=== PATIENT | male | born 1975 | race Caucasian/White ===

== ENCOUNTER 2019-09-10 18:11 | Inpatient (IN) | payer MEDICAID, SELFPAY ==
[~2019-09-10] VITALS: Ht 165.1 cm; Wt 94.3 kg
[2019-09-10 18:30] VITALS: BP 169/83
--- NOTE | 2019-09-10 18:35 | NUR ---
ngoc cabrera at bedside.
--- NOTE | 2019-09-10 18:44 | NUR ---
DR DOWNEY AT BEDSIDE EVALUATING PT.
--- NOTE | 2019-09-10 18:44 | NUR ---
HX OF ANXIETY C/O COUGH X DAYS, SOB, CHEST PAIN X TODAY . TEMP 103.7, O2 SAT 74 . PT AWAKE , ALERT, FIBRILE , SCE , COARSE BLF , FLAT SOFT NABS NONTENDERS ABDOMEN. MED HX: ANXIETY
[2019-09-10] MEDS ORDERED: ACETAMINOPHEN EXTRA STRENGTH 500 MG TAB ONE (18:58)
[2019-09-10] MEDS ORDERED: IBUPROFEN 800 MG TAB ONE (18:58)
[2019-09-10] MEDS ORDERED: IBUPROFEN 800 MG TAB PO ONE (19:00)
[2019-09-10] MEDS ORDERED: ACETAMINOPHEN EXTRA STRENGTH 500 MG TAB PO ONE (19:00)
--- NOTE | 2019-09-10 19:09 | NUR ---
ABG obtained by respiratory therapist.
[2019-09-10] MEDS ORDERED: AZITHROMYCIN 500 MG in DEXTROSE 5% 250 ML IV ONE (19:10)
--- NOTE | 2019-09-10 19:10 | NUR ---
IV 18GA RT/AC DONE BY CHELSI FERRARI, IV 18GA LT/AC DONE BY CHELSI MARTÍNEZ.COVID-19 SWAB LT NOSTRIL DONE-SENT TO LAB. BLOOD SENT TO LAB. RT AT BEDSIDE FOR ABG. Pt report given BY AM CHELSI FERRARI to PM CHELSI FISHER Transfer of care at this time.
--- NOTE | 2019-09-10 19:14 | NUR ---
gave report to xavi grossman. pt awake , alert, fibrile,stable b/p , tachycardic.side rails up x1 lock and lock.
[2019-09-10] MEDS ORDERED: AZITHROMYCIN 500 MG INJ VIAL IV ONE ×3 (19:17→22:39)
[2019-09-10 19:22] LABS: BASOPHILS % (AUTO) 0.4 % (0.0-2.0); HEMATOCRIT 45.2 % (36-52); HEMOGLOBIN 15.6 g/dL (12.0-18.0); LYMPHOCYTES # (AUTO) 0.5 K/uL (2.0-11.5); LYMPHOCYTES % (AUTO) 5.2 % (20.5-51.1); MEAN CORPUSCULAR HEMOGLOBIN 29 pg (27-31); MEAN CORPUSCULAR HGB CONC 34 g/dL (33-37); MEAN CORPUSCULAR VOLUME 84.7 fL (80-94); MONOCYTES # (AUTO) 0.5 K/uL (0.8-1.0); MONOCYTES % (AUTO) 5.8 % (1.7-9.3); NEUTROPHILS % (AUTO) 88.6 % (42.2-75.2); PLATELET COUNT (AUTO) 174 K/uL (140-450); RED BLOOD CELL COUNT(AUTO) 5.34 MIL/uL (4.20-6.10); RED CELL DISTRIBUTION WIDTH 13.6 % (11.6-13.7)
[2019-09-10 19:36] LABS: ALBUMIN 2.8 g/dL (3.4-5.0); ANION GAP 15.3 (8-16); CARBON DIOXIDE 27.2 mmol/L (21-32); CREATININE 1.4 mg/dL (0.6-1.3); POTASSIUM 3.5 mmol/L (3.5-5.1)
[2019-09-10 19:37] LABS: PROTHROMBIN TIME 10.5 secs (10.8-13.4)
[2019-09-10] MEDS ORDERED: ZINC SULF 220 MG CAP PO ONE (19:45)
[2019-09-10] MEDS ORDERED: HYDROXYCHLOROQUINE 200 MG TAB PO ONE (19:45)
[2019-09-10] MEDS ORDERED: NACL 0.9% 1,000 ML IV SCH (20:14)
[2019-09-10] MEDS ORDERED: ONDANSETRON 4 MG/2 ML VIAL IM/IVP PRN (20:15)
[2019-09-10] MEDS ORDERED: MORPHINE SULFATE 2 MG/ML SYR IVP PRN (20:15)
[2019-09-10] MEDS ORDERED: DOCUSATE SODIUM 100 MG GELCAP PO PRN (20:15)
[2019-09-10] MEDS ORDERED: HYDROcodone/APAP 5/325 MG 1 TAB TAB PO PRN (20:15)
--- NOTE | 2019-09-10 20:24 | NUR ---
PT RESPIRATORY RATE AT 38/MIN, INCREASED O2 TO 15L VIA NON-REBREATHER. DR DOWNEY NOTIFIED, PER DR DOWENY PT IS HIGH RISK FOR DESATING, SPOKE TO CHARGE NURSE ANDREW ABOUT SWITCHING PT TO ICU BED.
[2019-09-10 20:50] LABS: APPEARANCE,URINE CLEAR (CLEAR); BILIRUBIN,URINE 1+ (NEGATIVE); BLOOD, URINE 1+ (NEGATIVE); COLOR,URINE ORANGE (YELLOW); LEUKOCYTE ESTERASE ,URINE NEGATIVE (NEGATIVE); NITRITE, URINE NEGATIVE (NEGATIVE); UGLUCOSE NEGATIVE (NEGATIVE)
[2019-09-10 20:53] LABS: MAGNESIUM 1.4 mg/dL (1.8-2.4); PHOSPHORUS 1.3 mg/dL (2.5-4.9); THYROID STIMULATING HORMONE 0.42 uIU/mL (0.34-3.74)
[2019-09-10 20:58] LABS: BARBITURATE, URINE NEGATIVE ng/ml (NEG <=200); BENZODIAZEPINE, URINE NEGATIVE ng/mL (NEG <=200); CANNABINOID, URINE NEGATIVE ng/mL (NEG <=50); COCAINE, URINE NEGATIVE ng/mL (NEG <=300); OPIATE, URINE NEGATIVE ng/mL (NEG <=2000); PHENCYCLIDINE SCREEN,URINE NEGATIVE ng/mL (NEG <=25)
[2019-09-10 21:11] LABS: WBC,URINE 0-5 /HPF (0-5)
[2019-09-10 21:12] LABS: COARSE GRANULAR CASTS,URINE 0-10 /LPF (None Seen)
--- NOTE | 2019-09-10 21:15 | NUR ---
RECEIVED PT FROM ER. REPORT GIVEN BY EMMA GAGNON AT BEDSIDE TO ENSURE CONTINUITY OF CARE. PT IS SURINAMESE SPEAKING ONLY. TEMP 98.6. PT IS ABLE TO WALK. A&OX4. EYES PERRL 3MM. PT IS ON O2 VIA NRB AT 15 LPM DUE TO LOW O2 SATS AND TACHYPNEA AT 30+ RESPIRATIONS PER MINUTE. SATURATION IS ABOVE 95%. LUNG SOUNDS ARE CLEAR W/ DIMINISHED BASES. S1S2 HEARD. +2 RADIAL PULSES FELT. CAP REFILL <3 SECONDS. SR ON MONITOR. PT HAS NONPRODUCTIVE COUGH W/ ASSOCIATED CHEST PAIN. WHEN ASKED PT HAD STATED FOR APPROXIMATELY 4 DAYS. CALL LIGHT WITHIN REACH. BED IS LOCKED IN LOW POSITION. HOB 30 DEGREES. SAFETY MEASURES IN PLACE. WILL CONTINUE TO MONITOR.
--- NOTE | 2019-09-10 21:18 | NUR ---
Patient will be admitted to care of [facility]. Admited to ICU 2. Belongings list completed. Report to JAVIER GAGNON.
[2019-09-10] MEDS ORDERED: AZITHROMYCIN 500 MG in DEXTROSE 5% 250 ML IV SCH (22:05)
[2019-09-10] MEDS ORDERED: HYDROXYCHLOROQUINE 200 MG TAB ONE (22:30)
[2019-09-10] MEDS ORDERED: MAG SULF 2000 MG/WATER PREMIX 100 ML IV SCH (22:35)
[2019-09-10] MEDS ORDERED: SODIUM PHOS / POTASSIUM PHOS 1 PKT PDR PO SCH (22:35)
[2019-09-10] MEDS ORDERED: cefTRIAXone 1,000 MG VIAL ONE (22:39)
[2019-09-10] MEDS: DEXT 5% /NACL 0.9% 1,000 ML IV SCH (23:15)
--- NOTE | 2019-09-10 23:50 | NUR ---
UTILIZED INTERPRETIVE SERVICE [facility] #[id number] FOR ADMISSION ASSESSMENT
[2019-09-11] VITALS: BP 125/83
[2019-09-11 04:00] VITALS: BP 141/62
[2019-09-11 06:12] LABS: ANION GAP 13.9 (8-16); CARBON DIOXIDE 26.8 mmol/L (21-32); CREATININE 1.1 mg/dL (0.6-1.3); POTASSIUM 3.7 mmol/L (3.5-5.1)
[2019-09-11 06:17] LABS: CHOL/HDL RATIO 3.9 (1-4.5)
[2019-09-11 06:42] LABS: BASOPHILS # (AUTO) 0.1 K/uL (0.00-0.22); BASOPHILS % (AUTO) 1.1 % (0.0-2.0); EOSINOPHILS # (AUTO) 0.1 K/uL (0-0.4); EOSINOPHILS % (AUTO) 0.6 % (0.0-4.0); HEMOGLOBIN 14.8 g/dL (12.0-18.0); LYMPHOCYTES # (AUTO) 1.1 K/uL (2.0-11.5); LYMPHOCYTES % (AUTO) 12.4 % (20.5-51.1); MEAN CORPUSCULAR HEMOGLOBIN 29 pg (27-31); MEAN CORPUSCULAR HGB CONC 35 g/dL (33-37); MEAN CORPUSCULAR VOLUME 84.5 fL (80-94); MONOCYTES # (AUTO) 0.6 K/uL (0.8-1.0); MONOCYTES % (AUTO) 6.3 % (1.7-9.3); NEUTROPHILS # (AUTO) 7.1 K/uL (1.8-7.7); NEUTROPHILS % (AUTO) 79.6 % (42.2-75.2); PLATELET COUNT (AUTO) 260 K/uL (140-450); RED BLOOD CELL COUNT(AUTO) 5.08 MIL/uL (4.20-6.10); RED CELL DISTRIBUTION WIDTH 13.9 % (11.6-13.7)
--- NOTE | 2019-09-11 07:25 | NUR ---
ENDORSED PT TO DAY SHIFT NURSE TO ENSURE CONTINUITY OF CARE.
--- NOTE | 2019-09-11 07:27 | NUR ---
SHIFT REPORT RECEIVED FROM MILL TENDER NURSE. PT IS AWAKE AND RESPONSIVE. PT IS LYING IN BED AND WATCHING TELEVISION. BED IN LOW POSITION. IV IN PLACE. PT ON NON REBREATHER AT 15L/MIN. CURRENT O2 SATS AT 98%. RESPIRATION NOTED AT 28 BREATHS PER MINUTE. WILL CONTINUE TO MONITOR.
[2019-09-11 08:00] VITALS: BP 147/65
--- NOTE | 2019-09-11 08:30 | NUR ---
PT REMOVED NON REBREATHER MASK TO COUGH. O2 SATS NOTED AT 70. RT CHECKED PATIENT. PT WAS GIVEN NASAL CANULA. O2 SATS DID NOT GO ABOVE 94%. RT PUT PT BACK ON NON REBREATHER MASK. O2 SATS AT 93%. PT IS RESPONSIVE TO VERBAL STIMULI. WILL CONTINUE TO MONITOR. CALL LIGHT IN REACH.
--- NOTE | 2019-09-11 08:35 | NUR ---
PATIENT HAS BEEN SCREENED AND CATEGORIZED HIGH NUTRITION RISK. PATIENT WILL BE SEEN WITHIN 1-2 DAYS OF ADMISSION. 09/11/19-09/12/[address]
[2019-09-11] MEDS ORDERED: HYDROXYCHLOROQUINE 200 MG TAB PO SCH ×2 (09:00)
--- NOTE | 2019-09-11 09:01 | NUR ---
RECEIVED PT ON 15L NON-REBREATHER MASK. PT'S VITAL SIGNS ARE STABLE WITH AN O2 SATURATION BETWEEN 90-93%. WILL CONTINUE TO MONITOR AND KEEP PT ON NRB MASK UNTIL 02 DEMANDS DECREASE.
[2019-09-11] MEDS: ENOXAPARIN 40 MG/0.4 ML SYR SUBQ SCH (09:34)
[2019-09-11] MEDS: DEXT 5% /NACL 0.9% 1,000 ML IV SCH (09:46)
--- NOTE | 2019-09-11 10:00 | NUR ---
REQUESTED PATIENT TO REPOSITION FREQUENTLY TO HIS SIDES. PT IS ON NON BREATHER AT 15L. O2 SATS AT 94%. MORNING MEDICATIONS GIVEN. OCCASIONAL COUGH NOTED. D5NS INFUSING AT 80. NO COMPLAINS OF PAIN REPORTED. RESPIRATIONS NOTED AT 32 BREATHS PER MIN. WILL CONTINUE TO MONITOR.
--- NOTE | 2019-09-11 10:08 | NUR ---
DISCHARGE PLANNING: THIS IS A 44 Y/O MALE PATIENT FROM HOME, WHO CAME IN DUE TO FEVER AND SOB X3 DAYS. NO PERTINENT PAST MEDICAL AND SURGICAL HISTORY. INITIAL DIAGNOSIS OF R/O COVID. CURRENT LABS INCLUDE WBC 9.0, H/H 14.8/43.0, H/H 140/3.7, BUN/CREA 13/1.1, LACTIC ACID 1.7 AND C REACTIVE PROTEIN 18.8. COVID-19 PENDING. NEGATIVE FOR A AND B. MRSA NARES, URINE AND BLOOD C/S PENDING. ON AZITHROMYCIN AND CEFTRIAXONE. PULMO CONSULT IN PLACE. CXR SHOWED LOW LUNG VOLUMES WITH DIFFUSE BILATERAL PATCHY INFILTRATES, COVID INFECTION IS POSSIBLE. DC PLAN PENDING ON PATIENT'S RESPONSE TO TREATMENT. Addendum: 09/12/19 at 1015 by Ana Maria Amezcua STILL IN ICU, ON NON REBREATHER MASK AT 15 LPM. COVID 19 STILL PENDING. NO ISOLATED MRSA. URINE CS PENDING. BLOOD C/S NO GROWTH AFTER 24 HOURS. SEEN BY ID, WITH RECOMMENDATIONS TO CONTINUE EMPIRIC COVERAGE WITH COMBINATION OF CEFTRIAXONE, AZITHROMYCIN AND PLAQUENIL; CONTACT AND DROPLET PRECAUTIONS PENDING FURTHER EVALUATION. SEEN BY PULMO - WITH RECOMMENDATIONS TO TITRATE FIO2 SATURATION GREATER THAN 90% AND CONTINUE ICU LEVEL MONITORING. DC PLAN PENDING ON PATIENT'S RESPONSE TO TREATMENT. Addendum: 09/14/19 at 0856 by Ana Maria Amezcua CM STILL IN ICU. ON NON REBREATHER MASK AT 15LPM, O2 SAT 99%. CURRENT LABS INCLUDE WBC 8.1, H/H 13.6/39.9, NA/K 142/3.3, BUN/CREA 11/1.1, C REACTIVE PROTEIN 17.7 AND ALB 2.2. NO ISOLATED MRSA. URINE C/S NEGATIVE. BLOOD C/S NO GROWTH AFTER 48 HOURS. CXR 09/13/2019 SHOWED INTERVAL DEVELOPMENT OF PERIPHERAL CONSOLIDATION OF THE LEFT MID LUNG SUGGEST CORRELATION FOR COVID 19. (+) COVID. ON AZITHROMYCIN AND PLQUENIL. SEEN BY ID-CONTINUE PLAQUENIL AND AZITHROMYCIN. SEEN BY PULMO-TITRATE TO NC IF TOLERATES, PROGNOSIS IS GUARDED. DC PLAN PENDING ON PATIENT'S RESPONSE TO TREATMENT. Addendum: 09/17/19 at 0915 by Ana Maria Amezcua CM STILL IN ICU, ON OXYMIZER AT 8 LPM. CURRENT LABS WNL. SEEN BY ID - WITH RECOMMENDATIONS TO MONITOR OFF ANTIBIOTICS. SEEN BY PULMO - WITH RECOMMENDATIONS TO TITRATE FIO2 TO MAINTAIN O2 SAT GREATER THAN 90%. CURRENT CXR SHOWED MILD PERIHILAR VERSUS INFILTRATE. ON BREATHING TREATMENT WITH ALBUTEROL. DC PLAN PENDING ON PATIENT'S RESPONSE TO TREATMENT. Addendum: 09/18/19 at 0921 by Ana Maria Amezcua CM STILL IN ICU, TELE STATUS. ON 02 AT 8 LPM/OXYMIZER SAT 95%. CURRENT LABS WNL. ID AND PULMO CONSULTS IN PLACE. DC PLAN PENDING ON PATIENT RESPONSE TO TREATMENT. Addendum: 09/19/19 at 1009 by Ana Maria Amezcua STILL IN ICU, TELE STATUS. CURRENT LABS WNL. PATIENT FINISHED THE COURSE OF ANTIBIOTIC FOR COVID. FOR POSSIBLE TRANSFER TO TELE FLOOR TODAY. Addendum: 09/20/19 at 0900 by Ana Maria Amezcua CM STILL IN ICU, ON TELE STATUS. ON 02 @ 2LPM/NC, SAT 97%. SEEN BY ID-CONTINUE CURRENT MANAGEMENT, PATIENT IS STABLE. SEEN BY KIKA-PROGNOSIS IS GUARDED HIGH RISK FOR DECOMPENSATION MONITOR CLOSELY AND CONTINUE SELF PRONING. DC PLAN PENDING ON PATIENT'S RESPONSE TO TREATMENT. Addendum: 09/22/19 at 1102 by Ana Maria Amezcua CM TRANSFERRED TO [facility] ON 09/21/2019 AT 0300. ON ROOM AIR, O2 SAT 93%. CURRENT LABS WNL. ON ZINC SULFATE AND LOVENOX. COMPLETED COVID ANTIBIOTIC COURSE ON 09/15/2019. SEEN BY ID-PATIENT IS CURRENTLY CLINICALLY STABLE, TO CONTINUE TO MONITOR FOR ANY EVIDENCE OF RESP DISTRESS AND NOSOCOMIAL INFECTION. SEEN BY KIKA - OFF O2 AND TO CONTINUE SELF PRONING. DC PLAN PENDING ON PATIENT RESPONSE TO TREATMENT. Addendum: 09/24/19 at 1121 by Ana Maria Amezcua CM ON ROOM AIR, O2 SAT 95%. CURRENT LABS WNL. SEEN BY PT - NO PT INTERVENTIONS DUE TO HIGH LEVEL OF FUNCTION. FOR POSSIBLE DC TOMORROW. CM WILL FOLLOW UP.
[2019-09-11] MEDS ORDERED: hydrALAZINE 20 MG/ML VIAL IVP PRN (11:30)
--- NOTE | 2019-09-11 11:30 | NUR ---
Eyelet Maker Note: Basic Screen: Yes High Risk DC Screen Yaurel: SHAMEKA JACKSON Home Relationship: Pre-Admission Living Arrangements: Lives with Other Prior ADL Independent Current Home Health Name/Tel: N/A Current DME/02 Name/Tel: N/A Current Hospice Name/Tel: N/A Current Dialysis Name/Tel: N/A Healthcare Decision Maker: Patient Advance Directive No Physician Orders for Life Sustaining Treatment Form No Patient/Family Have Educational Needs No Discipline: Case Mgt/Social Svcs Tentative Discharge Plan/Destination: No Needs Identified Will require assistance post discharge: No Referred to [employer] Civil Engineer: No Tentative Discharge Plan Summary: Patient is a 44 year old male admitted for R/O of COVID. Patient has no significant PMHX. Patient was admitted from home where he lives with his and children. SW contacted Shameka Jackson to verify demographics [phone]. Shameka provided permission to speak to her brother Huan Jackson. Per Huan, patient is independent with all ADLs and reports no mental health history or substance abuse history. Tentative discharge plan is for patient to return home. No further needs identified. Signature: PORFIRIO Hyman Date: Sep 11, 2019 Time: 11:28
[2019-09-11 12:00] VITALS: BP 141/80
--- NOTE | 2019-09-11 12:00 | NUR ---
PT IS AWAKE AND RESPONSIVE. PT WAS SEEN COUGHING NOTED WITH SLIGHT RED TINGED COLOR TO SPUTUM. PT WAS GIVEN LUNCH. CALL LIGHT IN REACH. WILL CONTINUE TO MONITOR.
[2019-09-11] MEDS: ASCORBIC ACID 500 MG TAB PO SCH (12:33)
--- NOTE | 2019-09-11 13:40 | NUR ---
09/11/19 RD INITIAL ASSESSMENT COMPLETED PLEASE REFER TO NUTRITION ASSESSMENT UNDER CARE ACTIVITY FOR ESTIMATED NUTRITIONAL NEEDS. 1. CONTINUE REGULAR DIET TOLERATED 2. RECOMMEND ENSURE BID 3. IF PATIENT IS INTUBATED CONSULT WITH FNS FOR NUTRITION SUPPORT RECOMMENDATIONS 4. RD TO FOLLOW-UP 2-3 DAYS, HIGH RISK BALDEV GÓMEZ RD
--- NOTE | 2019-09-11 13:51 | NUR ---
Late entry. Confirmed with RN that 0.9 NS IV ended at 2117
--- NOTE | 2019-09-11 14:17 | NUR ---
PT IS RESTING IN BED AT THIS TIME. AWAKE AND RESPONSIVE. BLOOD PRESSURE AT 158/73, R AT 28. NO COMPLAINS OF PAIN. WILL CONTINUE TO MONITOR.
[2019-09-11 16:00] VITALS: BP 158/80
--- NOTE | 2019-09-11 17:04 | NUR ---
PT IS SITTING IN BED TALKING ON PHONE TO HIS FAMILY. NOTED WITH LOW O2 SATS AT 70% WHEN PT TAKEN OFF HIS MASK. PT REPOSITIONED SELF OFTEN POSSIBLE. PT IS HAVING SIPS OF WATER. WILL CONTINUE TO MONITOR.
--- NOTE | 2019-09-11 17:45 | NUR ---
PT IS SLEEPING BUT RESPONSIVE TO VERBAL STIMULI. PT DOES NOT WANT TO HAVE DINNER. PT IS STILL ON 15L NON REBREATHER O2 SATS AT 98% AND RESPIRATION AT 28. NO COMPLAINS OF PAIN. WILL CONTINUE TO MONITOR.
[2019-09-11] MEDS ORDERED: METOPROLOL 25 MG TAB PO SCH (18:15)
--- NOTE | 2019-09-11 19:13 | NUR ---
SHIFT REPORT GIVEN TO HEALTHCARE INSURANCE SALES AGENT NURSE FOR CONTINUATION OF CARE. PT WILL BE CONTINUED TO BE MONITORED. CALL LIGHT IN REACH.
--- NOTE | 2019-09-11 19:14 | NUR ---
RECEIVED BEDSIDE REPORT FROM AM SHIFT NURSE. PATIENT IS LYING IN BED, SEMI FOWLERS ON RIGHT SIDE. AWAKE AND ALERT. NO DISTRESS NOTED. ON 15L NON BREATHER MASK. BILATERAL IV ACCESS ON RIGHT AND LEFT AC, PATENT, INTACT AND INFUSING WELL. INITIAL ASSESSMENT DONE. SKIN IS INTACT. BED IN LOW, BED LOCKED, SAFETY MEASURES IN PLACE. ON ENHANCED PRECAUTIONS. CALL LIGHT WITHIN PATIENT REACH. WILL CONTINUE TO MONITOR PATIENT.
[2019-09-11 20:00] VITALS: BP 158/80
[2019-09-11] MEDS: AZITHROMYCIN 500 MG in DEXTROSE 5% 250 ML IV SCH (21:26)
[2019-09-11] MEDS: HYDROXYCHLOROQUINE 200 MG TAB PO SCH (21:26)
--- NOTE | 2019-09-11 21:30 | NUR ---
SCHEDULED MEDS ADMINISTERED AT THIS TIME.
--- NOTE | 2019-09-11 21:45 | NUR ---
PATIENT GAVE CONSENT TO GIVE INFORMATION TO MILY LARKIN. PHONE NUMBER LEFT IN CHART.
[2019-09-12] VITALS (7 sets, daily range): BP systolic 122–150; BP diastolic 71–90
[2019-09-12] MEDS: LORazepam 1 MG TAB PO PRN ×2 (00:59→23:22)
--- NOTE | 2019-09-12 00:59 | NUR ---
PRN ATIVAN GIVEN AT THIS TIME PER PATIENT REQUEST FOR ANXIETY. WILL CONTINUE TO MONITOR PATIENT.
--- NOTE | 2019-09-12 02:00 | NUR ---
ROUNDS DONE. PATIENT RESTING WITH EYES CLOSED. VISIBLE CHEST RISE AND FALL NOTED. WILL CONTINUE TO MONITOR PATIENT.
--- NOTE | 2019-09-12 04:00 | NUR ---
VITALS DONE. NO DISTRESS NOTED. WILL CONTINUE TO MONITOR PATIENT.
[2019-09-12 06:15] LABS: ALBUMIN 2.3 g/dL (3.4-5.0); ANION GAP 11.1 (8-16); CARBON DIOXIDE 28.5 mmol/L (21-32); CREATININE 1.1 mg/dL (0.6-1.3); POTASSIUM 3.6 mmol/L (3.5-5.1); TOTAL BILIRUBIN 0.6 mg/dL (0.0-1.0)
[2019-09-12 06:16] LABS: MAGNESIUM 1.8 mg/dL (1.8-2.4); PHOSPHORUS 3.9 mg/dL (2.5-4.9)
[2019-09-12 06:48] LABS: BASOPHILS # (AUTO) 0.1 K/uL (0.00-0.22); EOSINOPHILS % (AUTO) 0.1 % (0.0-4.0); HEMATOCRIT 40.4 % (36-52); HEMOGLOBIN 13.7 g/dL (12.0-18.0); LYMPHOCYTES # (AUTO) 0.7 K/uL (2.0-11.5); LYMPHOCYTES % (AUTO) 10.4 % (20.5-51.1); MEAN CORPUSCULAR HEMOGLOBIN 29 pg (27-31); MEAN CORPUSCULAR HGB CONC 34 g/dL (33-37); MEAN CORPUSCULAR VOLUME 85.1 fL (80-94); MONOCYTES # (AUTO) 0.7 K/uL (0.8-1.0); MONOCYTES % (AUTO) 9.5 % (1.7-9.3); NEUTROPHILS # (AUTO) 5.4 K/uL (1.8-7.7); PLATELET COUNT (AUTO) 241 K/uL (140-450); RED BLOOD CELL COUNT(AUTO) 4.75 MIL/uL (4.20-6.10); RED CELL DISTRIBUTION WIDTH 13.3 % (11.6-13.7); WHITE BLOOD COUNT (AUTO) 6.8 K/uL (4.8-10.8)
--- NOTE | 2019-09-12 07:20 | NUR ---
RECEIVED BEDSIDE REPORT FROM CREAM MAKER NURSE TUNG FOR CONTINUITY OF CARE. PT IS ALSEEP COMFORTABLY ON BED, ON 15 LPM VIA NON-REBREATHER, SPO2 AT 93%. NO SIGNS OF DISTRESS NOTED. IV ON LAC AND RAC 18G, CLEAN AND INTACT. RAC INFUSING D5NS AT 20 ML/HR. SKIN CLEAN AND DRY. PT IS CONTINENT AND ABLE TO USE URANAL BY BEDSIDE. TELE MONITOR, SPO2 MONITOR AND BP CUFF ATTACHED. DROPLET AND ENHANCED PRECAUTION IN PLACE. SAFETY MEASURES IN PLACE.
--- NOTE | 2019-09-12 09:02 | NUR ---
DR RAMIREZ IS TALKING TO PT AT BESIDE.
[2019-09-12] MEDS: ASCORBIC ACID 500 MG TAB PO SCH (09:24)
[2019-09-12] MEDS: ZINC SULF 220 MG CAP PO SCH (09:25)
[2019-09-12] MEDS: HYDROXYCHLOROQUINE 200 MG TAB PO SCH ×2 (09:25→20:28)
[2019-09-12] MEDS: ENOXAPARIN 40 MG/0.4 ML SYR SUBQ SCH (09:26)
--- NOTE | 2019-09-12 09:42 | NUR ---
ADMINISTERED AM SCHEDULED MEDS PER MD ORDER, MEDS EDUCATION PROVIDED AND PT NODDED HIS HEAD, PT TOLERATED PO MEDS WELL. PT AWAKE AND RESTING ON BED AT THIS TIME. NO SIGNS OF DISTRESS NOTED. INSTRUCTED PT TO KEEP NON-REBREATHER ON AT ALL TIME, PT SAID "OK". TELE MONITOR AND SPO2 MONITOR ATTACHED. SAFETY MEASURES IN PLACE.
[2019-09-12] MEDS: DEXT 5% /NACL 0.9% 1,000 ML IV SCH (10:20)
--- NOTE | 2019-09-12 11:00 | NUR ---
PRIOR TO INCENTIVE SPIROMETRY THERAPY PLACED PATIENT ON SUPPLEMENTAL OXYGEN AT 6 LPM VIA NC TOLERATED INCENTIVE SPIROMETRY THERAPY WELL ADVERSE REACTION OF DESCENDING SATURATION TO 90% DURING THERAPY POST THERAPY PLACED PATIENT BACK ON SUPPLEMENTAL OXYGEN AT 15 LPM VIA NON REBREATHER Addendum: 09/12/19 at 1126 by Luciano Valencia RT REVIEWED CXR DATED 09/09 "LOW LUNG VOLUMES WITH PATCHY BILATERAL INFILTRATES"
--- NOTE | 2019-09-12 11:12 | NUR ---
PT IS SITTING UP ON BED AND TALKING ON THE PHONE. RESPIRATION TACHYPNEA AND SPO2 AT 92% VIA NON-REBREATHER MASK. DENIED PAIN, DIZZINESS AND NAUSEA. NO ACUTE DISTRESS NOTED. TELE MONITOR AND SPO2 MONITOR ATTACHED. SAFETY MEASURES IN PLACE.
--- NOTE | 2019-09-12 11:55 | NUR ---
PROVIDED LUNCH TRAY AND CHECKED VITAL SIGNS. PT IS FACE TIMING WITH FAMILY AT THIS TIME.
--- NOTE | 2019-09-12 13:11 | NUR ---
PT IS RESTING ON BED AND LYING ON RIGHT LATERALLY. RESPIRATION TACHYPNEA AND SYMMETRICAL, RR 34, SPO2 AT 98% VIA NON-REBREATHER MASK. NO ACUTE DISTRESS NOTED. TELE MONITOR AND SPO2 MONITOR ATTACHED. SAFETY MEASURES IN PLACE.
--- NOTE | 2019-09-12 15:41 | NUR ---
PT IS RESTING ON BED AND AROUSABLE BY TAPPING ON WINDOW. PT REPLIED, "OK" WITH FINGER GESTURE. SPO2 AT 94% WITH 15 LPM VIA NON-REBREATHER. NO ACUTE DISTRESS NOTED. TELE MONITOR AND SPO2 MONITOR ATTACHED. SAFETY MEASURES IN PLACE.
--- NOTE | 2019-09-12 16:32 | NUR ---
DR KELLEY IS AT BEDSIDE.
[2019-09-12] MEDS: BENZONATATE 100 MG CAPLF PO PRN (17:35)
--- NOTE | 2019-09-12 17:36 | NUR ---
PATIENT COMPLAINED OF COUGHS AND HE FEELS RESTLESS. ADMINISTERED PRN COUGH MED TESSALON PERLES PER MD ORDER, MED EDUCATION PROVIDED AND PT VERBALIZED OK. PT TOLERATED PO MED WELL. PROVIDED DINNER TRAY. PT IS GETTING READY TO HAVE DINNER. DENIED PAIN, SOB, VOMITING. NO ACUTE DISTRESS NOTED. TELE MONITOR AND SPO2 ATTACHED. SAFETY MEASURES IN PLACE.
--- NOTE | 2019-09-12 18:21 | NUR ---
ATTENDED TO PT'S CALL LIGHT, PT STATED THAT "I NEED TO USE THE BATHROOM FOR NUMBER 2." PROVIDED BEDPAN AND WIPE, INSTRUCTED PT TO USE THE BEDPAN AND CLEAN WITH WIPE AFTERWARD. PT NODDED. NO SIGNS OF DISTRESS NOTED. TELE MONITOR AND SPO2 MONITOR ATTACHED. SAFETY MEASURES IN PLACE.
--- NOTE | 2019-09-12 18:45 | NUR ---
RECEIVED A CALL FROM PT'S STEP DAUGHTER CHAYA, UPDATED CHAYA WITH PT'S CURRENT CONDITION. PER CHAYA, THE FAMILY (HERSELF AND THE OF PT) REQUESTED TO NOTIFY THEM FIRST ONCE COVID RESULT IS OUT DUE TO PT WILL GET PANIC AND VERY ANXIOUS. WILL ENDORSE TO ONCOMING SHIFT RN.
--- NOTE | 2019-09-12 19:17 | NUR ---
ENDORSED PT AT BEDSIDE TO CRM SPECIALIST NURSE GARCIA FOR CONTINUITY OF CARE. PT IS IN STABLE CONDITION. TELE MONITOR AND SPO2 MONITOR ATTACHED.
--- NOTE | 2019-09-12 20:00 | NUR ---
RECEIVED PATIENT AWAKE, ALERT AND ORIENTED. PT TACHYPNEIC ON 15LPM NRB MASK. PT DENIES DISCOMFORT OR PAIN. CLEAR LUNG SOUNDS. NO COUGH AT THIS TIME. PT ON TELE AND CONTINUOUS O2 MONITORING. O2 SAT 95% AT THIS TIME. BED LOWERED WITH CALL LIGHT WITHIN REACH. WILL CONTINUE TO MONITOR
[2019-09-12] MEDS: AZITHROMYCIN 500 MG in DEXTROSE 5% 250 ML IV SCH (20:28)
--- NOTE | 2019-09-12 23:22 | NUR ---
PT C/O ANXIETY PRN MEDICATION ADMINISTERED. PT REMAINS ON 15 LPM NRB. O2 SAT 94%
[2019-09-13] MEDS ORDERED: ALBUTEROL HFA MDI 90 MCG/ACTUATION 8 GM INH PRN (03:00)
[2019-09-13 03:05] VITALS: BP 132/71
--- NOTE | 2019-09-13 03:05 | NUR ---
PT O2 SAT SUSTAINING AT 87% ON 15LPM NRB, TACHYPNEIC WITH 55 BREATHS PER MINUTE. PT AWAKE AND ALERT. PT DENIES ANY PAIN. TEMP 100.[address] DEL VALLE
[2019-09-13] MEDS: ACETAMINOPHEN 325 MG TAB PO PRN (03:12)
--- NOTE | 2019-09-13 03:20 | NUR ---
PRN MEDICATION ADMINISTERED FOR FEVER. PATIENT ENCOURAGED TO RELAX AND TAKE DEEP BREATHS. PT PLACED ON HIS LEFT LATERAL SIDE, HOB ELEVATED. O2 SAT 92% ON 15 LPM, NRB. WILL CONTINUE TO MONITOR
[2019-09-13 04:25] VITALS: BP 113/69
--- NOTE | 2019-09-13 05:33 | NUR ---
NO HHN TX NEEDED. HR 94,SPO2 90% ON NRB. PT IS TAHYPNEIC. CHELSI GARCIA IS AWARE. WILL CONT TO MONITOR
[2019-09-13 06:11] LABS: BASOPHILS % (AUTO) 0.2 % (0.0-2.0); EOSINOPHILS % (AUTO) 0.3 % (0.0-4.0); HEMATOCRIT 39.4 % (36-52); HEMOGLOBIN 13.3 g/dL (12.0-18.0); LYMPHOCYTES # (AUTO) 0.5 K/uL (2.0-11.5); LYMPHOCYTES % (AUTO) 6.6 % (20.5-51.1); MEAN CORPUSCULAR HEMOGLOBIN 29 pg (27-31); MEAN CORPUSCULAR HGB CONC 34 g/dL (33-37); MONOCYTES # (AUTO) 0.8 K/uL (0.8-1.0); MONOCYTES % (AUTO) 11.2 % (1.7-9.3); NEUTROPHILS # (AUTO) 5.7 K/uL (1.8-7.7); NEUTROPHILS % (AUTO) 81.7 % (42.2-75.2); PLATELET COUNT (AUTO) 263 K/uL (140-450); RED BLOOD CELL COUNT(AUTO) 4.63 MIL/uL (4.20-6.10); RED CELL DISTRIBUTION WIDTH 13.5 % (11.6-13.7)
[2019-09-13 06:49] LABS: ALBUMIN 2.3 g/dL (3.4-5.0); ANION GAP 12.5 (8-16); CARBON DIOXIDE 29.1 mmol/L (21-32); CREATININE 1.2 mg/dL (0.6-1.3); MAGNESIUM 1.9 mg/dL (1.8-2.4); PHOSPHORUS 3.7 mg/dL (2.5-4.9); POTASSIUM 3.6 mmol/L (3.5-5.1); TOTAL BILIRUBIN 0.5 mg/dL (0.0-1.0)
--- NOTE | 2019-09-13 07:36 | NUR ---
RECEIVED REPORT AT BEDSIDE FOR CONTINUITY OF CARE. PT IS AAOX4, ABLE TO COMMUNICATE WELL AND MAKE NEEDS KNOWN. PT TALKING ON HIS PHONE. PT ON 15L/MIN VIA NON REBREATHER. BOWEL SOUNDS HEARD. SKIN INTACT. LAST BM ON 09/11. DISCUSSED POC WITH PT AND PT VERBALIZED UNDERSTANDING. SAFETY MEASURES IN PLACE. PT INSTRUCTED PER MD ORDERS TO CHANGE POSITIONS TO PRONE FOR MAX OXYGENATION. CALL LIGHT WITHIN REACH, BED IN LOW POSITION. WILL ROUND FREQUENTLY THROUGHOUT THE SHIFT.
[2019-09-13 08:00] VITALS: BP 118/63
--- NOTE | 2019-09-13 09:10 | NUR ---
PATIENT ROUND WITH DR. FORREST RAMIREZ TITRATE OXYGEN DEVICE TO NASAL CANNULA IF TOLERATED
[2019-09-13] MEDS: HYDROXYCHLOROQUINE 200 MG TAB PO SCH ×2 (09:41→20:14)
[2019-09-13] MEDS: ASCORBIC ACID 500 MG TAB PO SCH (09:41)
[2019-09-13] MEDS: ZINC SULF 220 MG CAP PO SCH (09:41)
[2019-09-13] MEDS: ENOXAPARIN 40 MG/0.4 ML SYR SUBQ SCH (09:42)
--- NOTE | 2019-09-13 09:46 | NUR ---
ADMINISTERED MORNING MEDS. PT TOLERATED WELL. PT ASKED FOR BEDSIDE COMMODE SO HE CAN HAVE BOWEL MOVEMENT MORE COMFORTABLY. PROVIDED PT WITH COMMODE AND PT ABLE TO GO TO HAVE BOWEL MOVEMENT. ALL OTHER NEEDS MET. WILL CONTINUE TO ROUND ON PT.
[2019-09-13] MEDS: DEXT 5% /NACL 0.9% 1,000 ML IV SCH (10:20)
--- NOTE | 2019-09-13 10:28 | NUR ---
SATURATION 96% ON SUPPLEMENTAL OXYGEN AT 15 LPM VIA NON REBREATHER CHANGED OXYGEN DEVICE TO OXYMIZER AT 10 LPM FLIGHT CREW SCHEDULER TO MONITOR
--- NOTE | 2019-09-13 11:37 | NUR ---
PT RESTING IN BED. ALL NEEDS MET. PER 'S ORDERS. PT TO BE PLACED ON NC @ 6-8LPM. RESPIRATORY SWITCHED MASK AND FLOW BUT PT WAS NOT ABLE TO TOLERATE. PT DESATED TO 84%. PT RETURNED TO NON REBREATHER @ 15LPM.
--- NOTE | 2019-09-13 11:59 | NUR ---
SATURATION 87% ON SUPPLEMENTAL OXYGEN AT 10 LPM VIA OXYMIZER PATIENT STATES "I FEEL SHORT OF BREATH" CHANGED OXYGEN DEVICE BACK TO NON REBREATHER TA 15 LPM CATE/CHELSI NOTIFIED
[2019-09-13 12:00] VITALS: BP 126/68
--- NOTE | 2019-09-13 13:36 | NUR ---
PT ASLEEP. ALL NEEDS CURRENTLY MET. WILL CONTINUE TO MONITOR PT CLOSELY.
--- NOTE | 2019-09-13 15:17 | NUR ---
PT RESTING IN BED TALKING ON HIS CELLPHONE. ALL NEEDS MET. WILL CONTINUE TO MONITOR PT CLOSELY.
[2019-09-13 16:00] VITALS: BP 145/94
--- NOTE | 2019-09-13 17:55 | NUR ---
PT RESTING IN BED HAVING DINNER. ALL NEEDS MET. WILL CONTINUE TO MONITOR PT CLOSELY.
--- NOTE | 2019-09-13 19:25 | NUR ---
ENDORSED PT TO GRAVURE PRESS OPERATOR RN FOR CONTINUITY OF CARE. PT IN STABLE CONDITION AT THIS TIME.
--- NOTE | 2019-09-13 19:35 | NUR ---
RECEIVED CHANGE OF SHIFT REPORT FROM DAY SHIFT NURSE. PT IS SYRIAC SPEAKING. PT IS A&OX4. NO IMMEDIATE DISTRESS NOTED. PT DENIES PAIN. PT IS TACHYPNEIC W/ RATE OF 40. PT IS AFEBRILE. LUNG SOUNDS ARE CLEAR W/ DIMINISHED BASES. PT DOES HAVE A NON PRODUCTIVE DRY COUGH. ON O2 VIA NRB AT 15LPM TO MAINTAIN SPO2 ABOVE 90%. PT HAS 18G BILATERAL AC. BOTH IV SITES ARE ASYMPTOMATIC, PATENT AND INTACT. D5NS RUNNING THROUGH RIGHT AC AT 20ML/HR. PT IS ABLE TO MOVE ALL FOUR EXTREMITIES AND IS ABLE TO USE BEDSIDE COMMODE. S1S2 HEARD. SR ON MONITOR. CAP REFILL <3. BED IS LOCKED IN LOW POSITION W/ HOB AT 30 DEGREES. CALL LIGHT WITHIN REACH. WILL CONTINUE TO MONITOR.
[2019-09-13 20:00] VITALS: BP 139/79
[2019-09-13] MEDS: AZITHROMYCIN 500 MG in DEXTROSE 5% 250 ML IV SCH (20:13)
--- NOTE | 2019-09-13 21:30 | NUR ---
WENT TO CHECK IN ON PT. PT IS RESTING IN BED TALKING ON PERSONAL PHONE. DOES NOT APPEAR TO BE IN DISTRESS. PT DENIES PAIN. PT IS TACHYPNEIC W/ RATE OF 40-45. EQUAL RISE AND FALL OF CHEST, GOOD CAP REFILL <3. PT IS ABLE TO SPEAK IN COMPLETE SENTENCES. CALL LIGHT WITHIN REACH. WILL CONTINUE TO MONITOR.
--- NOTE | 2019-09-13 23:00 | NUR ---
PT APPEARED TO BE RESTING W/ EYES CLOSED. PT IS AROUSABLE TO VOICE. PT DENIES ANY DISTRESS NOR PAIN. ROOM WAS CLEANED, SCHEDULED MEDICATIONS WERE ADMINISTERED. SAFETY CHECKS WERE PERFORMED. WILL CONTINUE TO MONITOR.
[2019-09-14] VITALS: BP 139/79
--- NOTE | 2019-09-14 02:30 | NUR ---
SPO2 WENT DOWN TO MID 80'S. WENT TO CHECK IN ON PT. PT APPEARED TO BE RESTING W/ NRB ONLY COVERING MOUTH. NO SIGNS OF DISTRESS NOTED. PT WAS REMINDED TO PLACE NRB ON FACE. PT WAS ALSO ENCOURAGED TO TURN IN BED IN ATTEMPT TO RISE SPO2. PT WAS COMPLIANT AND SPO2 IS ABOVE 90%. WILL CONTINUE TO MONITOR.
[2019-09-14 04:00] VITALS: BP 138/79
--- NOTE | 2019-09-14 05:21 | NUR ---
CHECKED IN ON PT. PT IS AWAKE AND ALERT. PT HAS INTERMITTENT NON-PRODUCTIVE DRY COUGH. PT HAD SPO2 AT 86-89% SITTING ON SIDE OF BED. PT WAS ENCOURAGE TO LAY BACK DOWN IN THE PRONE POSITION IN ATTEMPT TO IMPROVE SPO2. ATTEMPT WAS SUCCESSFUL SPO2 RISEN UP TO 90-92%. PT IS ON O2 NRB AT 15LPM TO MAINTAIN SPO2 ABOVE 90%. PT IS SINUS TACHY ON MONITOR W/ HR AT 102. PT DENIES ANY DISTRESS OR PAIN AT THIS PAIN. BED IS LOCKED IN LOW POSITON W/ HOB AT 30 DEGREES. CALL LIGHT WITHIN REACH. WILL CONTINUE TO MONITOR.
[2019-09-14 06:15] LABS: BASOPHILS # (AUTO) 0.1 K/uL (0.00-0.22); BASOPHILS % (AUTO) 0.8 % (0.0-2.0); EOSINOPHILS % (AUTO) 0.4 % (0.0-4.0); HEMATOCRIT 39.9 % (36-52); HEMOGLOBIN 13.6 g/dL (12.0-18.0); LYMPHOCYTES # (AUTO) 0.6 K/uL (2.0-11.5); LYMPHOCYTES % (AUTO) 6.9 % (20.5-51.1); MEAN CORPUSCULAR HEMOGLOBIN 29 pg (27-31); MEAN CORPUSCULAR HGB CONC 34 g/dL (33-37); MEAN CORPUSCULAR VOLUME 84.7 fL (80-94); MONOCYTES # (AUTO) 0.8 K/uL (0.8-1.0); MONOCYTES % (AUTO) 9.5 % (1.7-9.3); NEUTROPHILS # (AUTO) 6.7 K/uL (1.8-7.7); NEUTROPHILS % (AUTO) 82.4 % (42.2-75.2); PLATELET COUNT (AUTO) 300 K/uL (140-450); RED BLOOD CELL COUNT(AUTO) 4.71 MIL/uL (4.20-6.10); RED CELL DISTRIBUTION WIDTH 13.1 % (11.6-13.7); WHITE BLOOD COUNT (AUTO) 8.1 K/uL (4.8-10.8)
[2019-09-14 06:30] LABS: ALBUMIN 2.2 g/dL (3.4-5.0); ANION GAP 13.3 (8-16); CREATININE 1.1 mg/dL (0.6-1.3); MAGNESIUM 1.8 mg/dL (1.8-2.4); PHOSPHORUS 3.3 mg/dL (2.5-4.9); POTASSIUM 3.3 mmol/L (3.5-5.1); TOTAL BILIRUBIN 0.6 mg/dL (0.0-1.0)
--- NOTE | 2019-09-14 07:55 | NUR ---
DR MELLO AND MEDICAL TEAM AT BEDSIDE FOR EVAL,
[2019-09-14 08:00] VITALS: BP 142/81
[2019-09-14] MEDS: ZINC SULF 220 MG CAP PO SCH (08:51)
[2019-09-14] MEDS: HYDROXYCHLOROQUINE 200 MG TAB PO SCH ×2 (08:51→21:09)
[2019-09-14] MEDS: ASCORBIC ACID 500 MG TAB PO SCH (08:51)
[2019-09-14] MEDS: ENOXAPARIN 40 MG/0.4 ML SYR SUBQ SCH (08:52)
--- NOTE | 2019-09-14 09:08 | NUR ---
DR RAMIREZ AT BEDSIDE, ABG ORDERED
[2019-09-14] MEDS: ACETAMINOPHEN 325 MG TAB PO PRN ×2 (09:22→21:10)
[2019-09-14] MEDS: DEXT 5% /NACL 0.9% 1,000 ML IV SCH (10:20)
[2019-09-14 12:00] VITALS: BP 130/82
[2019-09-14] MEDS ORDERED: POTASSIUM CHLORIDE 10 MEQ TABER PO SCH (12:30)
--- NOTE | 2019-09-14 13:19 | NUR ---
09/14/19 RD INITIAL ASSESSMENT COMPLETED PLEASE REFER TO NUTRITION ASSESSMENT UNDER CARE ACTIVITY FOR ESTIMATED NUTRITIONAL NEEDS. 1. CONTINUE REGULAR DIET WITH ENSURE BID TOLERATED 2. ENCOURAGE PATIENT TO INCREASE PO INTAKE 3. IF PATIENT IS INTUBATED CONSULT WITH FNS FOR NUTRITION SUPPORT RECOMMENDATIONS 4. RD TO FOLLOW-UP 3-5 DAYS, MODERATE RISK BALDEV G[address]MEZ RD
--- NOTE | 2019-09-14 14:05 | NUR ---
PT ON THE PHONE WITH FAMILY, TALKING IN FULL SENTENCES, PT DENIES PAIN OR DISCOMFORT, DENIES SOB, ONLY OCCASIONAL COUGHS. CALL MENDEZ WITHIN REACH, WILL CONTINUE TO MONITOR
[2019-09-14 16:00] VITALS: BP 140/69
--- NOTE | 2019-09-14 18:30 | NUR ---
PT SITTING UP TALKING ON CELL PHONE WITH FAILY, DENIES PAIN, DENIES SOB, PT STATES IT'S HARD TO EAT DUE TO COUGH, REQUESTS COUGH MEDICATION, DR DEL VALLE NOTIFIED, VITALS STABLE, PT REMAINS IN NRB MASK, O2SAT 90% AT THIS TIME.
--- NOTE | 2019-09-14 19:20 | NUR ---
RECEIVED REPORT FROM AM SHIFT. PT AOX4. ABLE TO VERBALIZE NEEDS. FOLLOWS COMMANDS. ON NRB 15L REGULAR DIET.VOIDS IN URINAL. CONTINUE TO MONITOR.
--- NOTE | 2019-09-14 19:25 | NUR ---
REPORT GIVEN TO THERESA WYATT
[2019-09-14] MEDS: BENZONATATE 100 MG CAPLF PO PRN (21:10)
[2019-09-14] MEDS: AZITHROMYCIN 500 MG in DEXTROSE 5% 250 ML IV SCH (21:10)
--- NOTE | 2019-09-14 22:30 | NUR ---
NO SIGNS OF ACUTE DISTRESS AT THIS TIME UOP 600. DENIES PAIN. WILL CONTINUE TO OBSERVE.
[2019-09-15] VITALS: BP 133/79
--- NOTE | 2019-09-15 | NUR ---
PT DENIES PAIN. ABLE TO VERBALIZE NEEDS. AFEBRILE. CONTINUES TO TOLERATED NRB 15L. TACHYPNENIC AT THIS TIME.
[2019-09-15 04:00] VITALS: BP 128/74
--- NOTE | 2019-09-15 04:00 | NUR ---
AFEBRILE. DENIES AM CARE AT THIS TIME. REASSESSMENTS DOWN. COVID ISOLATION PRECAUTIONS OBSERVED. BED IN LOWEST POSITION. CONTINUE TO OBSERVE. PATIENT EDUCATION PROVIDED AT THIS TIME. NEEDS REINFORCEMENT.
--- NOTE | 2019-09-15 05:05 | NUR ---
pt remains on 100% nrb. pt resting comfortably. will cont to monitor
[2019-09-15 05:30] LABS: BASOPHILS % (AUTO) 0.4 % (0.0-2.0); EOSINOPHILS # (AUTO) 0.1 K/uL (0-0.4); EOSINOPHILS % (AUTO) 0.9 % (0.0-4.0); HEMATOCRIT 38.3 % (36-52); HEMOGLOBIN 12.9 g/dL (12.0-18.0); LYMPHOCYTES # (AUTO) 0.6 K/uL (2.0-11.5); LYMPHOCYTES % (AUTO) 6.6 % (20.5-51.1); MEAN CORPUSCULAR HEMOGLOBIN 29 pg (27-31); MEAN CORPUSCULAR HGB CONC 34 g/dL (33-37); MEAN CORPUSCULAR VOLUME 84.4 fL (80-94); MONOCYTES # (AUTO) 0.9 K/uL (0.8-1.0); MONOCYTES % (AUTO) 9.8 % (1.7-9.3); NEUTROPHILS # (AUTO) 7.5 K/uL (1.8-7.7); NEUTROPHILS % (AUTO) 82.3 % (42.2-75.2); PLATELET COUNT (AUTO) 323 K/uL (140-450); RED BLOOD CELL COUNT(AUTO) 4.54 MIL/uL (4.20-6.10); RED CELL DISTRIBUTION WIDTH 13.4 % (11.6-13.7); WHITE BLOOD COUNT (AUTO) 9.1 K/uL (4.8-10.8)
--- NOTE | 2019-09-15 06:13 | NUR ---
PT RESTING COMFORTABLY IN BED. RESPOSITIONS INDEPENDENTLY. WILL CONTINUE TO MONITOR
[2019-09-15 06:32] LABS: ALBUMIN 2.1 g/dL (3.4-5.0); CARBON DIOXIDE 26.4 mmol/L (21-32); MAGNESIUM 1.8 mg/dL (1.8-2.4); PHOSPHORUS 3.2 mg/dL (2.5-4.9); POTASSIUM 3.4 mmol/L (3.5-5.1); TOTAL BILIRUBIN 0.5 mg/dL (0.0-1.0)
--- NOTE | 2019-09-15 07:07 | NUR ---
ENDORSED CARE TO INCOMING SHIFT RN [place] FOR CONTINUITY OF CARE.
--- NOTE | 2019-09-15 07:08 | NUR ---
REPORT RECEIVED FROM MANAGER TERMINAL NURSE AT BEDSIDE FOR CONTINUITY OF CARE. PATIENT AWAKE AND ALERT, IV SITE INTACT, ASYMPTOMATIC. PT ON 15L NRB, RESPIRATIONS EVEN AND UNLABORED, TACHYPNIC, O2 SATURATION AT 93%. PATIENT DENIES PAIN, USES URINAL. DROPLET PRECAUTIONS IN PLACE, CALL LIGHT WITHIN REACH, WILL CONTINUE TO MONITOR PATIENT.
[2019-09-15 08:00] VITALS: BP 136/77
[2019-09-15] MEDS: HYDROXYCHLOROQUINE 200 MG TAB PO SCH ×2 (08:22→20:24)
[2019-09-15] MEDS: ASCORBIC ACID 500 MG TAB PO SCH (08:22)
[2019-09-15] MEDS: ZINC SULF 220 MG CAP PO SCH (08:22)
[2019-09-15] MEDS: ENOXAPARIN 40 MG/0.4 ML SYR SUBQ SCH (08:23)
--- NOTE | 2019-09-15 08:23 | NUR ---
ORDERED MEDICATIONS GIVEN, PATIENT TOLERATED THEM WELL. PATIENT HAS NO COMPLAINTS AT THIS TIME, DENIES PAIN. CALL LIGHT WITHIN REACH, DROPLET PRECAUTIONS IN PLACE, WILL CONTINUE TO MONITOR PATIENT.
--- NOTE | 2019-09-15 10:05 | NUR ---
PATIENT RESTING IN BED COMFORTABLY, SPEAKING ON HIS CELL PHONE, NO S/S OF DISTRESS NOTED, WILL CONTINUE TO MONITOR PATIENT.
[2019-09-15] MEDS: DEXT 5% /NACL 0.9% 1,000 ML IV SCH (10:20)
[2019-09-15] MEDS ORDERED: POTASSIUM CHLORIDE 10 MEQ TABER PO SCH (11:00)
[2019-09-15] MEDS: METOPROLOL 25 MG TAB PO SCH ×2 (11:50→20:24)
[2019-09-15 12:00] VITALS: BP 126/70
[2019-09-15] MEDS: ACETAMINOPHEN 325 MG TAB PO PRN (12:05)
--- NOTE | 2019-09-15 12:05 | NUR ---
PT C/O HEADACHE. PRN TYLENOL GIVEN. PATIENT SITTING UP FOR LUNCH. PATIENT HAS NO COMPLAINTS AT THIS TIME. DROPLET PRECAUTION IN PLACE, CALL LIGHT WITHIN REACH, WILL CONTINUE TO MONITOR PATIENT.
--- NOTE | 2019-09-15 15:55 | NUR ---
PATIENT OFF NRB MASK, OXIMIZER IN PLACE AT 7L OF O2, PATIENT O2 SATURATION AT 95%. PATIENT HAS NO COMPLAINTS AT THIS TIME. WATCHING TV AND ON PHONE. WILL CONTINUE TO MONITOR PATIENT.
[2019-09-15 16:00] VITALS: BP 144/92
[2019-09-15] MEDS: BENZONATATE 100 MG CAPLF PO PRN (17:23)
--- NOTE | 2019-09-15 19:30 | NUR ---
RECEIVED BEDSIDE REPORT FROM TAVARES DAY RN. PATIENT AWAKE AND ALERT LATVIAN SPEAKING ONLY, IV SITE INTACT, ASYMPTOMATIC. PT ON 15L NRB, RESPIRATIONS EVEN AND UNLABORED, TACHYPNIC. SKIN INTACT. PATIENT DENIES PAIN, USES URINAL. DROPLET PRECAUTIONS IN PLACE, CALL LIGHT WITHIN REACH, IS ABLE TO MAKE NEEDS KNOWN. WILL CONTINUE TO MONITOR PATIENT.
[2019-09-15 20:00] VITALS: BP 146/77
[2019-09-15] MEDS: AZITHROMYCIN 500 MG in DEXTROSE 5% 250 ML IV SCH (20:20)
--- NOTE | 2019-09-15 20:24 | NUR ---
VSS. CLARISA MEDICATIONS GIVEN PER ORDERS.
--- NOTE | 2019-09-15 21:15 | NUR ---
RECEIVED REPORT FROM AM SHIFT. PATIENT WAS SEEN AND ASSESSED. PATIENT IN NO APPARENT RESPIRATORY DISTRESS AT THIS TIME: RR 24, HR 98, SPO2 96% ON 7L OXYMIZER. AUSCULTATION REVEALS BILATERAL RALES BREATH SOUNDS. MDI PRN TX NO INDICATED AT THIS TIME. WILL CONTINUE TO MONITOR PATIENT.
--- NOTE | 2019-09-15 21:30 | NUR ---
TORB PER ALLIE D/C ZITHRO AND PLAQUENIL.
--- NOTE | 2019-09-15 21:54 | NUR ---
LAC 18G CAME OUT. IV CATH IS INTACT. RAC IV NOT PATENT. IV REMOVED AND IV CATH IS INTACT. NEW IV INSERTED ON L FA 20G. PT TOLERATED WELL.
[2019-09-16] VITALS: BP 146/69
--- NOTE | 2019-09-16 | NUR ---
PATIENT IS SLEEPING COMFORTABLY IN BED WITH EYES CLOSED. PT IS EASILY AROUSABLE TO NAME. VSS: 98.6, 96% ON OXIMIZER 7L, RR 26, 98HR, 146/69 DENIES PAIN. ALL NEEDS MET AT THIS TIME. WILL CONTINUE TO MONITOR.
--- NOTE | 2019-09-16 02:30 | NUR ---
PATIENT IS LAYING COMFORTABLY IN BED. NO S/S OF DISTRESS. CALL LIGHT IS WITHIN REACH. WILL CONTINUE TO MONITOR.
[2019-09-16] MEDS: LORazepam 1 MG TAB PO PRN (03:10)
--- NOTE | 2019-09-16 03:10 | NUR ---
PATIENT COMPLAIN OF ANXIETY AND STATES HE HAS NOT SLEPT. ADMINISTERED PRN ATIVAN PO. ALL NEEDS MET. WILL CONTINUE TO MONITOR.
[2019-09-16 04:00] VITALS: BP 141/88
--- NOTE | 2019-09-16 04:15 | NUR ---
VITAL SIGNS ARE STABLE. VS:HR 100, 141/88, RR 26 98.1, 98% ON 7L OXIMIZER, DENIES PAIN. ALL NEEDS MET. CALL LIGHT IS WITHIN REACH.
[2019-09-16 06:12] LABS: BASOPHILS % (AUTO) 0.6 % (0.0-2.0); EOSINOPHILS # (AUTO) 0.2 K/uL (0-0.4); EOSINOPHILS % (AUTO) 2.4 % (0.0-4.0); HEMATOCRIT 38.9 % (36-52); HEMOGLOBIN 13.2 g/dL (12.0-18.0); LYMPHOCYTES # (AUTO) 0.7 K/uL (2.0-11.5); MEAN CORPUSCULAR HEMOGLOBIN 29 pg (27-31); MEAN CORPUSCULAR HGB CONC 34 g/dL (33-37); MEAN CORPUSCULAR VOLUME 84.5 fL (80-94); MONOCYTES # (AUTO) 0.8 K/uL (0.8-1.0); NEUTROPHILS # (AUTO) 6.2 K/uL (1.8-7.7); PLATELET COUNT (AUTO) 380 K/uL (140-450); RED CELL DISTRIBUTION WIDTH 13.3 % (11.6-13.7); WHITE BLOOD COUNT (AUTO) 7.9 K/uL (4.8-10.8)
[2019-09-16 06:48] LABS: ALBUMIN 2.2 g/dL (3.4-5.0); ANION GAP 15.5 (8-16); CARBON DIOXIDE 25.9 mmol/L (21-32); MAGNESIUM 1.6 mg/dL (1.8-2.4); PHOSPHORUS 3.3 mg/dL (2.5-4.9); POTASSIUM 3.4 mmol/L (3.5-5.1); TOTAL BILIRUBIN 0.5 mg/dL (0.0-1.0)
--- NOTE | 2019-09-16 06:50 | NUR ---
PATIENT C/C ANXIETY DR AWARE AND WILL ORDER ATIVAN PRN FOR ANXIETY.
[2019-09-16 07:30] LABS: NEUTROPHILS % (AUTO) 78.7 % (42.2-75.2)
--- NOTE | 2019-09-16 07:30 | NUR ---
RECEIVED REPORT FROMNIGHT SHIFT RN. PT IS ASLEEP IN BED, NO SOB, NO C/O PAIN, ON 7 LITER O2 VIA OXYMIZER. IV SITE ON LEFT FOREARM. IV INTACT AND PATENT. INFUSING WELL. DROPLET PRECAUTION IN PLACE, CALL LIGHT WITHIN REACH. WILL CONTINUE TO MONITOR.
[2019-09-16 07:31] LABS: LYMPHOCYTES % (AUTO) 8.4 % (20.5-51.1); MONOCYTES % (AUTO) 9.9 % (1.7-9.3)
[2019-09-16 08:00] VITALS: BP 127/77
--- NOTE | 2019-09-16 08:50 | NUR ---
PT ASLEEP IN BED. NO DISTRESS NOTED, NO C/O PAIN, NO SOB, AFEBRILE. CALL LIGHT WITHIN REACH
[2019-09-16] MEDS: ENOXAPARIN 40 MG/0.4 ML SYR SUBQ SCH (09:00)
--- NOTE | 2019-09-16 09:50 | NUR ---
DUE MORNING MEDS GIVEN TOLERATED WELL
[2019-09-16] MEDS: DEXT 5% /NACL 0.9% 1,000 ML IV SCH (10:20)
[2019-09-16] MEDS: METOPROLOL 25 MG TAB PO SCH ×2 (10:33→21:05)
[2019-09-16] MEDS: ASCORBIC ACID 500 MG TAB PO SCH (10:33)
[2019-09-16] MEDS: ZINC SULF 220 MG CAP PO SCH (10:34)
--- NOTE | 2019-09-16 10:40 | NUR ---
SEEN AND EXAMINED BY DR. RAMIREZ
[2019-09-16 12:00] VITALS: BP 119/71
--- NOTE | 2019-09-16 12:10 | NUR ---
PT IN BED AWAKE, EATING LUNCH. TOLERATED WELL. IN STABLE CONDITION
[2019-09-16] MEDS ORDERED: POTASSIUM CHLORIDE 10 MEQ TABER PO SCH (14:00)
--- NOTE | 2019-09-16 14:40 | NUR ---
NEW ORDER FOR K-DUR 20 MEQ PO ONE TIME ONLY. GIVEN ORDERED.
--- NOTE | 2019-09-16 15:10 | NUR ---
SEEN AND EXAMINED BY DR. KELLEY
[2019-09-16 16:00] VITALS: BP 136/73
--- NOTE | 2019-09-16 17:30 | NUR ---
IN BED EATING LUNCH. IN STABLE CONDITION
--- NOTE | 2019-09-16 19:13 | NUR ---
ENDORSED TO NIGHT NURSE FOR CONTINUITY OF CARE. IN STABLE CONDITION
--- NOTE | 2019-09-16 19:15 | NUR ---
[facility] PATIENT IN BED RESTING. HOB ELEVATED. ON O2 7LPM VIA OXIMIZER. WITH IV G 20 ON L FA CLEAN AND INTACT. DENIES ANY PAIN OR DISTRESS AT THIS TIME. PLAN OF CARE DISCUSSED. SAFETY MEASURES IN PLACE. BED IN LOW POSITION, SIDE RAILS RAISED. CALL LIGHT WITHIN REACH. WILL CONTINUE TO MONITOR.
[2019-09-16 20:00] VITALS: BP 138/78
--- NOTE | 2019-09-16 21:08 | NUR ---
PATIENT IN BED RESTING. VITAL SIGNS STABLE. SCHEDULED MEDICATIONS GIVEN. O2 7LPM/OXIMIZER IN PLACE. RESPIRATIONS EVEN AND UNLABORED. DENIES ANY PAIN OR DISCOMFORT. SAFETY MEASURES IN PLACE. WILL CONTINUE TO MONITOR.
[2019-09-16] MEDS ORDERED: LORazepam 2 MG/ML VIAL IM/IVP PRN (21:45)
--- NOTE | 2019-09-16 22:21 | NUR ---
RECEIVED REPORT FROM AM SHIFT. PATIENT WAS SEEN AND ASSESSED. PATIENT IN NO APPARENT RESPIRATORY DISTRESS AT THIS TIME: RR 23, HR 90, SPO2 98% ON 8L OXYMIZER. AUSCULTATION REVEALS BILATERAL RALES BREATH SOUNDS. MDI PRN TX NO INDICATED AT THIS TIME. WILL CONTINUE TO MONITOR PATIENT.
--- NOTE | 2019-09-16 22:22 | NUR ---
PATIENT IN BED RESTING. NO SIGNS AND SYMPTOMS OF DISTRESS NOTED. O2 IN PLACE. NO REQUESTS MADE AT THIS TIME. WILL CONTINUE TO MONITOR.
[2019-09-17] VITALS: BP 154/82
--- NOTE | 2019-09-17 00:11 | NUR ---
PATIENT IN BED. VITAL SIGNS STABLE AT THIS TIME. RESPIRATIONS EVEN AND UNLABORED. O2 IN PLACE. DENIES ANY PAIN OR DISCOMFORT AT THIS TIME. SAFETY MEASURES IN PLACE. WILL CONTINUE TO MONITOR.
--- NOTE | 2019-09-17 02:18 | NUR ---
PATIENT ASLEEP IN BED. NO SIGNS OF DISTRESS NOTED. WILL CONTINUE TO MONITOR.
[2019-09-17 04:00] VITALS: BP 142/80
--- NOTE | 2019-09-17 04:11 | NUR ---
PATIENT IN BED RESTING. HOB ELEVATED. O2 IN PLACE. VITAL SIGNS STABLE. RESPIRATIONS EVEN AND UNLABORED. DENIES ANY PAIN OR DISCOMFORT AT THIS TIME. SAFETY MEASURES IN PLACE. WILL CONTINUE TO MONITOR.
--- NOTE | 2019-09-17 06:02 | NUR ---
PATIENT IN BED RESTING. DENIES ANY PAIN OR DISCOMFORT. O2 IN PLACE. RESPIRATIONS EVEN AND UNLABORED. SAFETY MEASURES IN PLACE. WILL CONTINUE TO MONITOR.
[2019-09-17 06:09] LABS: BASOPHILS # (AUTO) 0.1 K/uL (0.00-0.22); EOSINOPHILS # (AUTO) 0.2 K/uL (0-0.4); EOSINOPHILS % (AUTO) 2.8 % (0.0-4.0); HEMATOCRIT 39.7 % (36-52); HEMOGLOBIN 13.3 g/dL (12.0-18.0); LYMPHOCYTES # (AUTO) 0.9 K/uL (2.0-11.5); LYMPHOCYTES % (AUTO) 12.9 % (20.5-51.1); MEAN CORPUSCULAR HEMOGLOBIN 29 pg (27-31); MEAN CORPUSCULAR HGB CONC 34 g/dL (33-37); MEAN CORPUSCULAR VOLUME 85.2 fL (80-94); MONOCYTES # (AUTO) 0.8 K/uL (0.8-1.0); MONOCYTES % (AUTO) 12.1 % (1.7-9.3); NEUTROPHILS # (AUTO) 4.8 K/uL (1.8-7.7); NEUTROPHILS % (AUTO) 71.2 % (42.2-75.2); PLATELET COUNT (AUTO) 420 K/uL (140-450); RED BLOOD CELL COUNT(AUTO) 4.66 MIL/uL (4.20-6.10); RED CELL DISTRIBUTION WIDTH 13.2 % (11.6-13.7); WHITE BLOOD COUNT (AUTO) 6.7 K/uL (4.8-10.8)
[2019-09-17] MEDS: LORazepam 1 MG TAB PO PRN ×2 (06:59→20:29)
--- NOTE | 2019-09-17 06:59 | NUR ---
PATIENT VERBALIZED FEELING AGITATED AND ANXIOUS. PRN MEDICATION GIVEN ORDERED. WILL CONTINUE TO MONITOR.
--- NOTE | 2019-09-17 07:10 | NUR ---
ENDORSED TO DAY SHIFT NURSE. PLAN OF CARE DISCUSSED. PATIENT IN STABLE CONDITION.
--- NOTE | 2019-09-17 07:11 | NUR ---
Received report from pm nurse Brandin. Pt resting in bed, respirations even and nonlabored on O2 @ 7Lpm via oxymizer, FLACC 0, no signs of distress. Left forearm 20G IV intact with ongoing D5 1/2NS @ 10ml/hr. Will continue to monitor.
[2019-09-17 07:27] LABS: ALBUMIN 2.2 g/dL (3.4-5.0); ANION GAP 12.7 (8-16); MAGNESIUM 1.9 mg/dL (1.8-2.4); POTASSIUM 3.7 mmol/L (3.5-5.1); TOTAL BILIRUBIN 0.4 mg/dL (0.0-1.0)
[2019-09-17 08:00] VITALS: BP 131/85
[2019-09-17] MEDS: ZINC SULF 220 MG CAP PO SCH (08:30)
[2019-09-17] MEDS: METOPROLOL 25 MG TAB PO SCH ×2 (08:30→20:29)
[2019-09-17] MEDS: DEXT 5% /NACL 0.9% 1,000 ML IV SCH (08:31)
[2019-09-17] MEDS: ASCORBIC ACID 500 MG TAB PO SCH (08:31)
[2019-09-17] MEDS: ENOXAPARIN 40 MG/0.4 ML SYR SUBQ SCH (08:47)
[2019-09-17 12:00] VITALS: BP 159/83
--- NOTE | 2019-09-17 13:30 | NUR ---
Pt resting in bed, no signs of distress at this time. Able to transfer independently from bed to BSC and vice versa. Will cont to monitor.
[2019-09-17 16:00] VITALS: BP 165/78
--- NOTE | 2019-09-17 19:15 | NUR ---
Report given to pm nurse Rosales.
--- NOTE | 2019-09-17 19:16 | NUR ---
RECEIVED PATIENT IN STABLE CONDITION FROM AM SHIFT NURSE FOR CONTINUITY OF CARE. RESPIRATIONS EVEN, UNLABORED. CONTINUES ON 7 L VIA OXYMIZER. EATING DINNER AT THIS TIME. ISOLATION PRECAUTIONS OBSERVED BY ALL STAFF. CALL LIGHT WITHIN REACH. WILL CONTINUE TO MONITOR.
[2019-09-17 20:00] VITALS: BP 147/93
--- NOTE | 2019-09-17 20:29 | NUR ---
PATIENT C/O ANXIETY, MEDICATED ORDERED. WILL CONTINUE TO MONITOR.
--- NOTE | 2019-09-17 21:29 | NUR ---
PATIENT ON THE PHONE WITH FAMILY AND EXHIBITING NO S/SX OF ANXIETY. WILL CONTINUE TO MONITOR.
--- NOTE | 2019-09-17 23:02 | NUR ---
PATIENT ASLEEP IN BED. WILL CONTINUE TO MONITOR.
[2019-09-18] VITALS: BP 116/85
--- NOTE | 2019-09-18 00:40 | NUR ---
PATIENT ASLEEP AND IN NO S/SX ACUTE DISTRESS. WILL CONTINUE TO MONITOR.
--- NOTE | 2019-09-18 02:47 | NUR ---
PATIENT AWAKE IN BED. NO C/O PAIN. PATIENT VERBALIZES NO DISTRESS AT THIS TIME. SAFETY PRECAUTIONS IN PLACE. ISOLATION PRECAUTIONS OBSERVED. WILL CONTINUE TO MONITOR.
[2019-09-18 04:00] VITALS: BP 127/80
--- NOTE | 2019-09-18 04:14 | NUR ---
PATIENT AWAKE AND ON CELLPHONE. NO C/O PAIN. NO S/SX ACUTE DISTRESS. WILL CONTINUE TO MONITOR.
--- NOTE | 2019-09-18 06:06 | NUR ---
PATIENT RESTING WELL IN BED. NO C/O PAIN. NO S/SX ACUTE DISTRESS. WILL CONTINUE TO MONITOR.
[2019-09-18 06:16] LABS: HEMATOCRIT 39.3 % (36-52); HEMOGLOBIN 14.3 g/dL (12.0-18.0); MEAN CORPUSCULAR HEMOGLOBIN 31 pg (27-31); MEAN CORPUSCULAR HGB CONC 37 g/dL (33-37); MEAN CORPUSCULAR VOLUME 85.1 fL (80-94); PLATELET COUNT (AUTO) 510 K/uL (140-450); RED BLOOD CELL COUNT(AUTO) 4.61 MIL/uL (4.20-6.10); RED CELL DISTRIBUTION WIDTH 13.2 % (11.6-13.7); WHITE BLOOD COUNT (AUTO) 7.3 K/uL (4.8-10.8)
[2019-09-18 06:47] LABS: ALBUMIN 2.5 g/dL (3.4-5.0); ANION GAP 15.8 (8-16); CARBON DIOXIDE 26.2 mmol/L (21-32); CREATININE 1.1 mg/dL (0.6-1.3); MAGNESIUM 1.9 mg/dL (1.8-2.4); PHOSPHORUS 3.9 mg/dL (2.5-4.9); TOTAL BILIRUBIN 0.5 mg/dL (0.0-1.0)
--- NOTE | 2019-09-18 07:15 | NUR ---
RECEIVED REPORT FROM FLIGHT OPERATIONS ENGINEER NURSE NIRALI FOR CONTINUITY OF CARE. PT IN STABLE CONDITION. RESPIRATIONS EVEN AND UNLABORED, NON REBREATHER MASK 15L. IV INTACT AND PATENT. CONTINUOUS PULSE OXIMETER IN PLACE. SAFETY MEASURES IN PLACE. BED IN LOW POSITION. WILL CONTINUE TO MONITOR. Addendum: 09/18/19 at 1023 by Pat Tilley RN 02 7L VIA OXIMIZER
[2019-09-18 08:00] VITALS: BP 121/86
[2019-09-18] MEDS: METOPROLOL 25 MG TAB PO SCH ×2 (08:09→20:12)
[2019-09-18] MEDS: ZINC SULF 220 MG CAP PO SCH (08:09)
[2019-09-18] MEDS: ASCORBIC ACID 500 MG TAB PO SCH (08:10)
--- NOTE | 2019-09-18 08:10 | NUR ---
GAVE ORDERED DUE MEDICATIONS AT THIS TIME. PT TOLERATED WELL. SPOKE WITH PATIENT AND PATIENT'S SON ON THE PHONE FOR UPDATE. PT GAVE PERMISSION.
[2019-09-18] MEDS: ENOXAPARIN 40 MG/0.4 ML SYR SUBQ SCH (08:12)
[2019-09-18 08:31] LABS: BASOPHILS % (MANUAL) 0 % (0-2); EOSINOPHILS % (MANUAL) 6 % (0-4); LYMPHOCYTES % (MANUAL) 19 % (20-46); MONOCYTES % (MANUAL) 8 % (5-12)
[2019-09-18] MEDS: busPIRone 5 MG TAB PO SCH ×2 (09:10→20:12)
[2019-09-18] MEDS: DEXT 5% /NACL 0.9% 1,000 ML IV SCH (10:20)
--- NOTE | 2019-09-18 10:27 | NUR ---
PT SLEEPING AT THIS TIME. RESPIRATIONS EVEN AND UNLABORED. 02 7L VIA OXIMIZER.
--- NOTE | 2019-09-18 11:18 | NUR ---
PT AT BEDSIDE WALKING IN PLACE FOR EXERCISE. PT STABLE AT THIS TIME. WILL CONTINUE TO MONITOR.
[2019-09-18 12:00] VITALS: BP 117/74
--- NOTE | 2019-09-18 12:00 | NUR ---
WEANED PT FROM OXIMIZER 7L TO 4L VIA OXIMIZER. PT TOLERATING WELL. WILL CONTINUE TO MONITOR.
--- NOTE | 2019-09-18 12:30 | NUR ---
GAVE LUNCH TRAY TO PT. CHANGED SHEETS AND GOWN AT THIS TIME. PT TOLERATED WELL. RESPIRATIONS EVEN AND UNLABORED. CALL LIGHT AT BEDSIDE. WILL CONTINUE TO MONITOR.
--- NOTE | 2019-09-18 14:01 | NUR ---
PT LYING IN BED TALKING ON PHONE AT THIS TIME. RESPIRATIONS EVEN AND UNLABORED. CALL LIGHT AT BEDSIDE. WILL CONTINUE TO MONITOR.
--- NOTE | 2019-09-18 14:40 | NUR ---
WEANED PT FROM OXIMIZER 4L TO 4L VIA NC AT THIS TIME. PT SATURATION 93%. WILL CONTINUE TO MONITOR.
--- NOTE | 2019-09-18 15:15 | NUR ---
DR. JJ AT BEDSIDE FOR ASSESSMENT. PT IN STABLE CONDITION. BED IN LOW POSITION. CALL LIGHT AT BEDSIDE. WILL CONTINUE TO MONITOR.
[2019-09-18 16:00] VITALS: BP 112/72
--- NOTE | 2019-09-18 17:30 | NUR ---
GAVE DINNER TRAY AT THIS TIME. PT TOLERATED WELL. RESPIRATIONS EVEN AND UNLABORED. CALL LIGHT AT BEDSIDE. WILL CONTINUE TO MONITOR.
--- NOTE | 2019-09-18 19:10 | NUR ---
GAVE REPORT TO BOARD MILL SUPERVISOR NURSE BHUPINDER FOR CONTINUITY OF CARE. PT IN STABLE CONDITION.
--- NOTE | 2019-09-18 19:12 | NUR ---
RECEIVED REPORT FROM DAY SHIFT NURSE. PATIENT AWAKE, ALERT, ORIENTED. SITTING AT BEDSIDE. ON O2 4LPM/NC. RESPIRATIONS EVEN AND UNLABORED. DENIES ANY PAIN OR DISCOMFORT AT THIS TIME. IV ACCESS ON L FA G 20 CLEAN AND INTACT. PATIENT KEPT COMFORTABLE. CALL LIGHT WITHIN REACH. WILL CONTINUE TO MONITOR.
[2019-09-18 20:00] VITALS: BP 133/78
--- NOTE | 2019-09-18 20:36 | NUR ---
PATIENT IN BED. VITAL SIGNS TAKEN. SCHEDULED MEDICATIONS GIVEN. PATIENT IS AFEBRILE. RESPIRATIONS EVEN AND UNLABORED. O2 IN PLACE. IVF IN PLACE. DENIES ANY DISCOMFORT AT THIS TIME. KEPT SAFE AND COMFORTABLE. WILL CONTINUE TO MONITOR.
--- NOTE | 2019-09-18 22:09 | NUR ---
PATIENT IN BED USING PHONE. RESPIRATIONS EVEN AND UNLABORED. O2 4LPM/NC IN PLACE. O2 SAT 91%. WILL CONTINUE TO MONITOR.
[2019-09-19] VITALS: BP 124/72
--- NOTE | 2019-09-19 00:14 | NUR ---
VITAL SIGNS STABLE. PATIENT IS AFEBRILE. RESPIRATIONS EVEN AND UNLABORED. O2 SAT 96%. DENIES ANY PAIN OR DISCOMFORT. NO REQUESTS MADE. PATIENT KEPT SAFE AND COMFORTABLE. WILL CONTINUE TO MONITOR.
--- NOTE | 2019-09-19 01:59 | NUR ---
PT SLEEPING. NO S/SX OF DISTRESS NOTED. O2 SAT 96%. RESPIRATIONS EVEN AND UNLABORED. PT KEPT SAFE AND COMFORTABLE. WILL CONTINUE TO MONITOR.
[2019-09-19 04:00] VITALS: BP 108/75
--- NOTE | 2019-09-19 04:08 | NUR ---
PT IN BED RESTING. VITAL SIGNS STABLE. O2 SAT 97%. RESPIRATIONS EVEN AND UNLABORED. NOT IN DISTRESS. PATIENT KEPT COMFORTABLE. SAFETY MEASURES IN PLACE. ISOLATION PRECAUTIONS OBSERVED ALL THROUGHOUT THE SHIFT. WILL CONTINUE TO MONITOR.
--- NOTE | 2019-09-19 06:25 | NUR ---
PATIENT SLEEPING. NO S/SX OF DISTRESS. RESPIRATIONS EVEN AND UNLABORED. O2 SAT 96%. WILL CONTINUE TO MONITOR.
[2019-09-19 06:44] LABS: BASOPHILS # (AUTO) 0.1 K/uL (0.00-0.22); BASOPHILS % (AUTO) 1.1 % (0.0-2.0); EOSINOPHILS # (AUTO) 0.2 K/uL (0-0.4); EOSINOPHILS % (AUTO) 2.9 % (0.0-4.0); HEMATOCRIT 42.5 % (36-52); HEMOGLOBIN 14.1 g/dL (12.0-18.0); LYMPHOCYTES # (AUTO) 1.3 K/uL (2.0-11.5); MEAN CORPUSCULAR HEMOGLOBIN 28 pg (27-31); MEAN CORPUSCULAR HGB CONC 33 g/dL (33-37); MEAN CORPUSCULAR VOLUME 85.4 fL (80-94); MONOCYTES # (AUTO) 0.8 K/uL (0.8-1.0); PLATELET COUNT (AUTO) 506 K/uL (140-450); RED BLOOD CELL COUNT(AUTO) 4.98 MIL/uL (4.20-6.10); RED CELL DISTRIBUTION WIDTH 13.4 % (11.6-13.7); WHITE BLOOD COUNT (AUTO) 6.4 K/uL (4.8-10.8)
--- NOTE | 2019-09-19 07:12 | NUR ---
ENDORSED PATIENT TO DAY SHIFT NURSE FOR CONTINUITY OF CARE. PLAN OF CARE DISCUSSED. PATIENT IN STABLE CONDITION.
--- NOTE | 2019-09-19 07:15 | NUR ---
RECEIVED PT FROM SECURITY INTELLIGENCE ANALYST NURSE. PT IS CURRENTLY AWAKE, ALERT, IN BED WITH NO SIGNS OF DISTRESS NOTED. RESPIRATIONS ARE EVEN AND UNLABORED ON NASAL CANNULA 4L. SKIN IS INTACT WITH IV INFUSING PER ORDER 20ML/HR. SAFETY MEASURES IN PLACE, CALL LIGHT WITHIN REACH AND WILL CONTINUE TO MONITOR.
[2019-09-19 08:00] VITALS: BP 110/69
[2019-09-19 08:21] LABS: ALBUMIN 2.5 g/dL (3.4-5.0); ANION GAP 15.9 (8-16); CARBON DIOXIDE 24.3 mmol/L (21-32); MAGNESIUM 2.2 mg/dL (1.8-2.4); PHOSPHORUS 3.9 mg/dL (2.5-4.9); POTASSIUM 4.2 mmol/L (3.5-5.1); TOTAL BILIRUBIN 0.4 mg/dL (0.0-1.0)
[2019-09-19 08:50] LABS: CREATININE 1.2 mg/dL (0.6-1.3)
[2019-09-19] MEDS: ENOXAPARIN 40 MG/0.4 ML SYR SUBQ SCH (09:00)
[2019-09-19] MEDS: ASCORBIC ACID 500 MG TAB PO SCH (09:07)
[2019-09-19] MEDS: busPIRone 5 MG TAB PO SCH ×2 (09:07→20:03)
[2019-09-19] MEDS: METOPROLOL 25 MG TAB PO SCH ×2 (09:08→20:04)
[2019-09-19] MEDS: ZINC SULF 220 MG CAP PO SCH (09:08)
[2019-09-19] MEDS: DEXT 5% /NACL 0.9% 1,000 ML IV SCH (09:18)
--- NOTE | 2019-09-19 09:30 | NUR ---
ADMINISTERED MEDICATIONS PER ORDER AND TOLERATED WELL. TITRATED OXYGEN TO 2L NASAL CANNULA AND PT IS TOLERATING WELL. PT DOES NOT COMPLAIN OF PAIN AND DOES NOT DISPLAY SIGNS OF DISTRESS. PT ASKED WHEN HE IS GOING TO BE ABLE TO GO HOME AND STATES THAT HE HAS BEEN USING INCENTIVE SPIROMETER FREQUENTLY. SAFETY MEASURES IN PLACE AND WILL CONTINUE TO MONITOR.
--- NOTE | 2019-09-19 11:50 | NUR ---
PT IS CURRENTLY ALERT, AWAKE, AND SITTING AT THE EDGE OF THE BED. NO SIGNS OF DISTRESS NOTED OR COMPLAINTS OF PAIN. EDUCATION TEACHING WAS GIVEN REGARDING INCENTIVE SPIROMETER. PT LUNCH TRAY ARRIVED WAS PLACED IN ROOM. OT STATES THAT HE DOES NOT LIKE ENSURE. SAFETY MEASURES IN PLACE AND WILL CONTINUE TO MONITOR.
[2019-09-19 12:00] VITALS: BP 121/74
--- NOTE | 2019-09-19 13:53 | NUR ---
PT IS CURRENTLY ALERT, AWAKE, SITTING IN BED ON HIS MOBILE DEVICE. PT DOES NOT APPEAR TO BE IN DISTRESS NOR DOES HE COMPLAIN OF PAIN AT THIS TIME. SAFETY MEASURES ARE IN PLACE AND WILL CONTINUE TO MONITOR.
--- NOTE | 2019-09-19 13:58 | NUR ---
09/19/19 RD FOLLOW UP COMPLETED PLEASE REFER TO NUTRITION ASSESSMENT UNDER CARE ACTIVITY FOR ESTIMATED NUTRITIONAL NEEDS. 1. CONTINUE REGULAR DIET WITH ENSURE BID TOLERATED 2. ENCOURAGE PATIENT TO INCREASE PO INTAKE 3. IF PATIENT IS INTUBATED CONSULT WITH FNS FOR NUTRITION SUPPORT RECOMMENDATIONS 4. RD TO FOLLOW-UP 3-5 DAYS, MODERATE RISK BALDEV G[address]ME[address] RD
--- NOTE | 2019-09-19 14:49 | NUR ---
PT CURRENTLY ALERT, SITTING UP IN BED WITH NO SIGNS OF DISTRESS NOTED. PT 02SATURATION IS 98% ON 2L. PER PHYSICIAN ORDER OF TRYING TO TITRATE DOWN, PT IS NOW ON 1L NC AND SATURATING AT 93% WITH NO SIGNS OF DISTRESS. PT DOES NOT COMPLAIN OF PAIN. SAFETY MEASURES IN PLACE AND WILL CONTINUE TO MONITOR.
[2019-09-19 16:00] VITALS: BP 129/85
--- NOTE | 2019-09-19 16:38 | NUR ---
PT IS CURRENTLY AWAKE, ALERT, AND NO COMPLAINTS OF PAIN OR SIGNS OF DISTRESS. NASAL CANNULA HAS NOW BEEN REMOVED AND WILL MONITOR PT O2 SATURATIONS TO SEE HOW HE TOLERATES ROOM AIR. SAFETY MEASURES IN PLACE AND WILL CONTINUE TO MONITOR.
--- NOTE | 2019-09-19 17:49 | NUR ---
PT IS CURRENTLY AWAKE AND SITTING IN BED WITH NO SIGNS OF DISTRESS NOTED. PT IS EATING AND CONTINUES TO BE ON ROOM AIR. PT SATURATIONS RANGE FROM 88% TO 91%. SAFETY MEASURES IN PLACE AND WILL CONTINUE TO MONITOR.
--- NOTE | 2019-09-19 18:38 | NUR ---
PT STARTED TO FALL ASLEEP AND O2 SATURATION REACH 85%. NC 1L WAS REAPPLIED AND O2 SATURATION IS NOW AT 93%. SAFETY MEASURES IN PLACE AND WILL CONTINUE TO MONITOR.
--- NOTE | 2019-09-19 19:16 | NUR ---
PT IS CURRENTLY LAYING IN BED AWAKE WITH NO SIGNS OF DISTRESS OR COMPLAINTS OF PAIN. ENDORSED TO DIRECTOR NURSE, PT IS IN STABLE CONDITION.
--- NOTE | 2019-09-19 19:17 | NUR ---
RECEIVED BEDSIDE REPORT FROM DAY SHIFT NURSESTAR. PT AWAKE. NO SOB NOTED WITH 1LPM O2 VIA NC. SKIN INTACT, WARM AND DRY TO TOUCH. IV SITED ON LFA, 20G, PATENT, INTACT, AND ASYMPTOMATIC. BED IN LOW POSITION, CALL LIGHT WITHIN REACH. WILL CONTINUE TO MONITOR.
[2019-09-19 20:00] VITALS: BP 126/76
--- NOTE | 2019-09-19 20:04 | NUR ---
GIVEN BUSPAR AND METOPROLOL MD ORDERED. PT TOLERATED WELL.
--- NOTE | 2019-09-19 22:20 | NUR ---
PT AWAKE, SITTING ON THE BED. TALKING TO FAMILY ON THE PHONE. NO ACUTE DISTRESS NOTED.
[2019-09-20] VITALS: BP 102/66
--- NOTE | 2019-09-20 | NUR ---
VS CHECKED, WITHIN PT'S BASELINE. WILL CONTINUE TO MONITOR.
[2019-09-20] MEDS ORDERED: LORazepam 1 MG TAB PO ONE (02:20)
[2019-09-20] MEDS ORDERED: LORazepam 1 MG TAB ONE (02:24)
--- NOTE | 2019-09-20 02:32 | NUR ---
PT C/O ANXIETY. GIVEN ATIVAN MD ORDERED. PT REQUEST ONLY HALF TABLET RIGHT BEFORE PT TAKING. 1/2 TABLET GIVEN TO PT. THE OTHER 1/2 TABLET WAS DISCARDED.
[2019-09-20 04:00] VITALS: BP 122/83
--- NOTE | 2019-09-20 04:04 | NUR ---
VS CHECKED, WITHIN PT'S BASELINE. WILL CONTINUE TO MONITOR.
--- NOTE | 2019-09-20 05:38 | NUR ---
PT SLEEPING IN BED COMFORTABLY. NO ACUTE DISTRESS NOTED.
[2019-09-20 06:22] LABS: BASOPHILS # (AUTO) 0.1 K/uL (0.00-0.22); BASOPHILS % (AUTO) 1.9 % (0.0-2.0); EOSINOPHILS # (AUTO) 0.1 K/uL (0-0.4); EOSINOPHILS % (AUTO) 1.1 % (0.0-4.0); HEMATOCRIT 43.5 % (36-52); HEMOGLOBIN 14.5 g/dL (12.0-18.0); LYMPHOCYTES # (AUTO) 1.1 K/uL (2.0-11.5); LYMPHOCYTES % (AUTO) 16.5 % (20.5-51.1); MEAN CORPUSCULAR HEMOGLOBIN 29 pg (27-31); MEAN CORPUSCULAR HGB CONC 33 g/dL (33-37); MEAN CORPUSCULAR VOLUME 85.6 fL (80-94); MONOCYTES # (AUTO) 0.7 K/uL (0.8-1.0); NEUTROPHILS # (AUTO) 4.7 K/uL (1.8-7.7); NEUTROPHILS % (AUTO) 69.5 % (42.2-75.2); PLATELET COUNT (AUTO) 475 K/uL (140-450); RED BLOOD CELL COUNT(AUTO) 5.08 MIL/uL (4.20-6.10); RED CELL DISTRIBUTION WIDTH 13.3 % (11.6-13.7); WHITE BLOOD COUNT (AUTO) 6.7 K/uL (4.8-10.8)
[2019-09-20 06:43] LABS: ALBUMIN 2.6 g/dL (3.4-5.0); ANION GAP 12.1 (8-16); CARBON DIOXIDE 28.1 mmol/L (21-32); CREATININE 1.1 mg/dL (0.6-1.3); MAGNESIUM 1.9 mg/dL (1.8-2.4); POTASSIUM 4.2 mmol/L (3.5-5.1); TOTAL BILIRUBIN 0.4 mg/dL (0.0-1.0)
--- NOTE | 2019-09-20 07:14 | NUR ---
ENDORSED PT TO DAY SHIFT NURSE FOR CONTINUOUS CARE. PT IN STABLE CONDITION.
--- NOTE | 2019-09-20 07:19 | NUR ---
RECEIVED PATIENT FROM SOILED LINEN DISTRIBUTOR NURSE FOR CONTINUITY OF CARE. PATIENT IS CURRENTLY SLEEPING. NO SIGNS OF DISTRESS NOTED. RESPIRATIONS EVEN AND UNLABORED, ON 1L VIA NC. VISIBLE CHEST RISE NOTED. ON TELE MONITORING. ABDOMEN FLAT, SOFT, AND NONTENDER. SKIN WARM, DRY, AND INTACT. IV IN THE LEFT FOREARM GAUGE 20 RUNNING D5NS AT 20 ML/HR. NO SIGNS OF INFILTRATION NOTED. PATIENT USES URINAL. PATIENT IS AMBULATORY. BED IN LOW POSITION. CALL LIGHT IS WITHIN REACH. DROPLET PRECAUTION IN PLACE. WILL CONTINUE TO MONITOR.
--- NOTE | 2019-09-20 07:29 | NUR ---
AND THE RESIDENT DOCTORS MADE ROUNDS
[2019-09-20 08:00] VITALS: BP 107/73
--- NOTE | 2019-09-20 08:23 | NUR ---
PATIENT IS SITTING IN THE CHAIR BY BEDSIDE. O2SAT 91%. NO SIGNS OF DISTRESS NOTED.
[2019-09-20] MEDS: ZINC SULF 220 MG CAP PO SCH (09:34)
[2019-09-20] MEDS: ASCORBIC ACID 500 MG TAB PO SCH (09:34)
[2019-09-20] MEDS: ENOXAPARIN 40 MG/0.4 ML SYR SUBQ SCH (09:34)
[2019-09-20] MEDS: METOPROLOL 25 MG TAB PO SCH ×2 (09:34→20:33)
[2019-09-20] MEDS: busPIRone 5 MG TAB PO SCH ×2 (09:34→20:33)
--- NOTE | 2019-09-20 09:44 | NUR ---
GIVEN MORNING MEDICATIONS PO. GIVEN LOVENOX SUBQ IN THE LEFT UPPER ARM. EXPLAINED MEDICATIONS. BED IN LOW POSITION. CALL LIGHT IS WITHIN REACH. WILL CONTINUE TO MONITOR.
--- NOTE | 2019-09-20 10:04 | NUR ---
PATIENT IS LAYING IN BED. NO SIGNS OF DISTRESS NOTED. IV RUNNING WELL. BED IN LOW POSITION. CALL LIGHT IS WITHIN REACH. WILL CONTINUE TO MONITOR.
[2019-09-20] MEDS: DEXT 5% /NACL 0.9% 1,000 ML IV SCH (10:18)
--- NOTE | 2019-09-20 11:12 | NUR ---
PATIENT IS SLEEPING COMFORTABLY AT THIS TIME. NO SIGNS OF DISTRESS NOTED. BED IN LOW POSITION. CALL LIGHT IS WITHIN REACH. WILL CONTINUE TO MONITOR.
[2019-09-20 12:00] VITALS: BP 112/67
--- NOTE | 2019-09-20 12:14 | NUR ---
VITAL SIGNS CHECKED, WNL. PASSED TRAY TO THE PATIENT. WILL CONTINUE TO MONITOR.
--- NOTE | 2019-09-20 12:20 | NUR ---
PATIENT HAS BEEN COUGHING INTERMITTENTLY. OFFERED BENZONATATE FOR COUGH. PATIENT REFUSED.
--- NOTE | 2019-09-20 12:30 | NUR ---
PATIENT IS ON THE PHONE TALKING. O2SAT 90%. NO SIGNS OF DISTRESS NOTED. DENIES ANY PAIN.
--- NOTE | 2019-09-20 13:35 | NUR ---
GIVEN ONE PITCHER OF WATER PER PATIENT REQUEST.
--- NOTE | 2019-09-20 14:20 | NUR ---
INCENTIVE SPIROMETER COMPLETED. PATIENT TOLERATED WELL. WILL CONTINUE TO MONITOR
--- NOTE | 2019-09-20 14:40 | NUR ---
PATIENT IS CURRENTLY SLEEPING COMFORTABLY. IV RUNNING WELL. O2SAT 97% ON 1L O2 VIA NC. WILL CONTINUE TO MONITOR.
[2019-09-20] MEDS: BENZONATATE 100 MG CAPLF PO PRN (15:15)
--- NOTE | 2019-09-20 15:15 | NUR ---
GIVEN BENZONATATE FOR COUGHING. EXPLAINED MEDICATION. BED IN LOW POSITION. CALL LIGHT IS WITHIN REACH. WILL CONTINUE TO MONITOR.
--- NOTE | 2019-09-20 15:27 | NUR ---
INCENTIVE SPIROMETER IS BEING DONE BY THE PATIENT AT THIS TIME.
[2019-09-20 16:00] VITALS: BP 113/52
--- NOTE | 2019-09-20 16:33 | NUR ---
VITAL SIGNS CHECKED. ALL WITHIN NORMAL LIMITS. 02SAT 92% ON 1L O2 VIA NC. AFEBRILE. DENIES ANY PAIN. DC IVF PER MD ORDER. WILL CONTINUE TO MONITOR.
--- NOTE | 2019-09-20 17:00 | NUR ---
PATIENT TRIED TO WEAN OFF FROM 1L O2 VIA NC, DESATURATED TO 82-84%. PLACED NC BACK, O2 SAT IS 92-95%.
--- NOTE | 2019-09-20 17:03 | NUR ---
TKO NS AT 5 ML/HR
--- NOTE | 2019-09-20 17:25 | NUR ---
GAVE DINNER TRAY
--- NOTE | 2019-09-20 17:45 | NUR ---
DR. KELLEY MADE ROUNDS
--- NOTE | 2019-09-20 18:33 | NUR ---
PATIENT IS ON HIS PHONE. O2SAT OF 90% ROOM AIR. WILL CONTINUE TO MONITOR.
--- NOTE | 2019-09-20 19:13 | NUR ---
ENDORSED PATIENT TO THE FISHING WORKER NURSE FOR CONTINUITY OF CARE. PATIENT IS IN STABLE CONDITION.
--- NOTE | 2019-09-20 19:15 | NUR ---
RECEIVED BEDSIDE REPORT FROM AM SHIFT RN FOR PT'S CONTINUITY OF CARE. PT IS ALERT, AWAKE,ORIENTED, [place] SPEAKING, WATCHING TV, EATING DINNER, IS ON COLLAR STAY FUSER TENDER, CURRENTLY ON ROOM AIR SATURATING AT 91%, HAS LEFT FOREARM 20G TKO, NO DISTRESS NOTED. SAFETY MEASURES AND ISOLATION PRECAUTION IN PLACE. WILL MONITOR PT THROUGHOUT SHIFT.
[2019-09-20 20:00] VITALS: BP 122/89
--- NOTE | 2019-09-20 20:33 | NUR ---
VS CHECKED AND CHARTED. ADMINISTERED MEDICATIONS ORDERED, PT EDUCATION GIVEN, PT REFUSED OTHER 5 MG OF BUSPIRONE, STATES, "MAKES ME SUPER SLEEPY". PT REMINDED THE USE OF INCENTIVE SPIROMETER. PT VERBALIZED UNDERSTANDING. PT MADE COMFORTABLE, WILL CONTINUE TO MONITOR PT.
--- NOTE | 2019-09-20 21:45 | NUR ---
PT REQUESTED AND PROVIDED SUPPLIES FOR BEDSIDE COMMODE. PT UP AND OUT OF BED, TALKING %WITH FAMILY MEMBERS. PT SATURATION AT 92% ON 1L NC, PT GAVE THUMB'S UP. WILL CONTINUE TO MONITOR PT.
--- NOTE | 2019-09-20 23:00 | NUR ---
PT ASLEEP WITH NO SIGNS OF RESPIRATORY DISTRESS. WILL CONTINUE TO MONITOR PT.
[2019-09-21] VITALS: BP 121/83
--- NOTE | 2019-09-21 00:45 | NUR ---
PT ASLEEP, WOKE UP FOR VS CHECK. PT DENIES ANY PAIN OR DISCOMFORT. WILL CONTINUE TO MONITOR PT.
--- NOTE | 2019-09-21 03:00 | NUR ---
PT TRANSFERRED TO [facility] UNIT, PT AWARE AND UNDERSTAND PROCEDURE. ENDORSED PT TO CHELSI SPANN FOR PT'S CONTINUITY OF CARE. PT IS ON ROOM AIR SATURATING AT 94%, DENIES PAIN OR DISCOMFORT. PT MADE COMFORTABLE, TELE MONITOR ON. SAFETY MEASURES AND ISOLATION PRECAUTION IN PLACE.
--- NOTE | 2019-09-21 03:15 | NUR ---
RECEIVED BEDSIDE REPORT CHUCK GAGNON. PT AMBULATED FROM WHEELCHAIR TO BED WITH STEADY GAIT. PT IS [place] SPEAKING. AAOX4 ABLE TO MAKE NEEDS KNOWN. RESPIRATIONS ARE EQUAL AND UNLABORED ON ROOM AIR. PT HAS NC AT 1L O2 BY BEDSIDE FOR SOB. SKIN INTACT. IV ON LFA 20G SL FLUSHED WITH 10CC NS. DRESSING IS C/D/I. DX:COVID 19 AND PNA. SIGN IS AT THE DOOR. ORIENTED PT TO ROOM,CALL LIGHT, AND STAFF. POC DISCUSSED WITH PT. CALL LIGHT IS WITHIN REACH. WILL CONTINUE TO MONITOR.
[2019-09-21 04:00] VITALS: BP 118/68
--- NOTE | 2019-09-21 04:00 | NUR ---
VITAL SIGNS ARE WITHIN NORMAL LIMITS. PT DENIES PAIN. ALL NEEDS MET. CALL LIGHT IS WITHIN REACH. Addendum: 09/21/19 at 0424 by Hodan Naranjo RN RT MADE AWARE OF ORDER FOR ABG.
[2019-09-21 06:05] LABS: BASOPHILS # (AUTO) 0.2 K/uL (0.00-0.22); BASOPHILS % (AUTO) 2.2 % (0.0-2.0); EOSINOPHILS # (AUTO) 0.2 K/uL (0-0.4); EOSINOPHILS % (AUTO) 2.6 % (0.0-4.0); HEMATOCRIT 45.1 % (36-52); LYMPHOCYTES # (AUTO) 1.2 K/uL (2.0-11.5); LYMPHOCYTES % (AUTO) 15.7 % (20.5-51.1); MEAN CORPUSCULAR HEMOGLOBIN 28 pg (27-31); MEAN CORPUSCULAR HGB CONC 33 g/dL (33-37); MEAN CORPUSCULAR VOLUME 85.3 fL (80-94); MONOCYTES # (AUTO) 0.9 K/uL (0.8-1.0); MONOCYTES % (AUTO) 11.9 % (1.7-9.3); NEUTROPHILS # (AUTO) 5.3 K/uL (1.8-7.7); NEUTROPHILS % (AUTO) 67.6 % (42.2-75.2); PLATELET COUNT (AUTO) 489 K/uL (140-450); RED BLOOD CELL COUNT(AUTO) 5.29 MIL/uL (4.20-6.10); RED CELL DISTRIBUTION WIDTH 13.3 % (11.6-13.7); WHITE BLOOD COUNT (AUTO) 7.8 K/uL (4.8-10.8)
--- NOTE | 2019-09-21 06:50 | NUR ---
PAGED RT TO DRAW ABGS THERE IS AN ORDER IN PLACE.
[2019-09-21 07:02] LABS: ANION GAP 13.2 (8-16); CARBON DIOXIDE 30.1 mmol/L (21-32); CREATININE 1.2 mg/dL (0.6-1.3); PHOSPHORUS 3.9 mg/dL (2.5-4.9); POTASSIUM 4.3 mmol/L (3.5-5.1); TOTAL BILIRUBIN 0.4 mg/dL (0.0-1.0)
--- NOTE | 2019-09-21 07:22 | NUR ---
GAVE REPORT TO CATE GAGNON. PT ENDORSED IN STABLE CONDITION.
--- NOTE | 2019-09-21 07:36 | NUR ---
RECEIVED REPORT FROM LACROSSE COACH RN FOR CONTINUITY OF CARE. PT IS AAOX4, COOPERATIVE AND ABLE TO MAKE NEEDS KNOWN. PT DANISH SPEAKING. PT ON RA WITH 1LPM VIA NC PRN FOR SOB. PT UNABLE TO TO AMBULATE FOR TOO LONG WITHOUT FEELING SHORT OF BREATH. HE IS AWARE THAT HE WILL NOT BE D/C TODAY. PT SKIN INTACT. IV PATENT AND INTACT. DISCUSSED POC WITH PT AND PT VERBALIZED UNDERSTANDING. ALL NEEDS MET. WILL ROUND FREQUENTLY THROUGHOUT THE SHIFT.
[2019-09-21 08:00] VITALS: BP 97/63
--- NOTE | 2019-09-21 08:12 | NUR ---
RECEIVED ABG AT THIS TIME. PT TOLERATED WELL. NO SIGN OF DISTRESS AND RESTING COMFORTABLE.
[2019-09-21] MEDS: METOPROLOL 25 MG TAB PO SCH ×2 (09:00→21:00)
[2019-09-21] MEDS: busPIRone 5 MG TAB PO SCH ×2 (09:32→21:24)
[2019-09-21] MEDS: ENOXAPARIN 40 MG/0.4 ML SYR SUBQ SCH (09:32)
[2019-09-21] MEDS: ASCORBIC ACID 500 MG TAB PO SCH (09:32)
[2019-09-21] MEDS: ZINC SULF 220 MG CAP PO SCH (09:32)
--- NOTE | 2019-09-21 09:42 | NUR ---
ADMIN MORNING MEDS TO PT. PT TOLERATED WELL. METOPROLOL HELD DUE TO PT BP BEING 97/63. AWARE AND SAID OK JUST MONITOR PT. ALL NEEDS MET. WILL CONTINUE TO ROUND ON PT.
--- NOTE | 2019-09-21 11:32 | NUR ---
PT RESTING IN BED. ALL NEEDS MET. WILL CONTINUE TO ROUND ON PT. BED IN LOW POSITION, CALL LIGHT WITHIN REACH.
[2019-09-21 12:00] VITALS: BP 102/62
--- NOTE | 2019-09-21 13:40 | NUR ---
PT SLEEPING. ALL NEEDS MET. WILL CONTINUE TO ROUND ON PT.
--- NOTE | 2019-09-21 15:58 | NUR ---
PT RESTING IN BED. ALL NEEDS MET. PT ON RA SATING 95%. PT HAS BEEN AMBULATING SELF IN ROOM AND VERBALIZES THAT BREATHING IS BETTER. SATURATION HAS INCREASED.
[2019-09-21 16:00] VITALS: BP 116/68
--- NOTE | 2019-09-21 17:35 | NUR ---
PT RESTING IN BED TALKING ON THE PHONE. ALL NEEDS MET. WILL CONTINUE TO ROUND ON PT.
--- NOTE | 2019-09-21 19:36 | NUR ---
ENDORSED PT TO LIFE SUPPORT TECHNICIAN FOR CONTINUITY OF CARE. PT IN STABLE CONDITION AT THIS TIME.
--- NOTE | 2019-09-21 19:37 | NUR ---
RECEIVED REPORT FROM AM SHIFT CHELSI PAPPAS FOR CONTINUITY OF CARE. PT IS AAOX4, COOPERATIVE AND ABLE TO MAKE NEEDS KNOWN. PT [place] SPEAKING. PT ON RA, WITH 1LPM VIA NC PRN FOR SOB. PT ABLE TO GET UP ON BED, WITHOUT SOB . PT SKIN INTACT. IV CHECKED ON THE LEFT FOREARM G 20, NOT WORKING, PER PT HE FEELS PAIN ON THE SITE. REMOVED CANNULA, INTACT WILL REINSERT LATER. DISCUSSED POC WITH PT AND PT VERBALIZED UNDERSTANDING. ALL NEEDS MET. WILL ROUND FREQUENTLY THROUGHOUT THE SHIFT.
[2019-09-21 20:00] VITALS: BP 112/79
--- NOTE | 2019-09-21 20:00 | NUR ---
CHECKED IVF, PT IVF FLUSHED, NOT PATENT, PT FEELS PAIN IN HER PRESENT IVF, D/C CANNULA REMOVED INTACT. INSERTED ANOTHER LINE, ON THE RIGHT HAND G 24, PATENT AND INTACT. Addendum: 09/21/19 at 2333 by Antoinette Vogt RN DELETE NOTE
--- NOTE | 2019-09-21 21:00 | NUR ---
PT REINSERTED W/ IV ON THE RIGHT HAND G 20,X 1, PATENT AND INTACT, NO BLEEDING, NO SWELLING NOTED
--- NOTE | 2019-09-21 22:00 | NUR ---
CHECKED ON PATIENT, HER BP 159/74MMHG; HR 70; O2 SAT 97%; DENIES PAIN. PT ASKED IF SHE'S OK PT SAID SHE'S ALRIGHT. SHE ASKED FOR AN INCENTIVE SPIROMETRY.PT USED THE SPIROMETRY, WILL MONITOR BP. Addendum: 09/21/19 at 2333 by Antoinette Vogt RN EDUARDO HOYT
--- NOTE | 2019-09-21 22:13 | NUR ---
DAUGHTER ERIN WANTED AN UPDATE ON MOTHER, CALLED HER UP AT HER NO(cell#), NURSING CARE UPDATED AND INFORMED HER HOW HER GRANDMA IS DOING. INFORMED HER THAT WE ARE MONITORING HER B.P. Addendum: 09/21/19 at 2333 by Antoinette Vogt RN EDUARDO HOYT
--- NOTE | 2019-09-21 22:15 | NUR ---
INFORMED DR. DEL VALLE RE: BP, RETOOK IT AND PT';S BP 161/ 79; HR 73, DR. DEL VALLE SAID TO MONITOR BP EVERY 15 MINS Addendum: 09/21/19 at 2333 by Antoinette Vogt RN DONELLTE NOTE
--- NOTE | 2019-09-21 22:30 | NUR ---
BP = 155/ 80 HR 73; PT SLEEPING AT THIS TIME Addendum: 09/21/19 at 2333 by Antoinette Vogt RN EDUARDO HOYT
--- NOTE | 2019-09-21 22:45 | NUR ---
BP= 157/73 (104); HR =72; 99 O2 SAT Addendum: 09/21/19 at 2333 by Antoinette Vogt RN EDUARDO HOYT
--- NOTE | 2019-09-21 22:50 | NUR ---
PT TALKING TO FAMILY ON THE PHONE, PT ABLE TO SIT UP ON BED INDEPENDENTLY.
--- NOTE | 2019-09-21 23:00 | NUR ---
PT BP= 157/75; HR = 74 Addendum: 09/21/19 at 2334 by Antoinette Vogt RN EDUARDO HOYT
--- NOTE | 2019-09-21 23:00 | NUR ---
PT GIVEN FOOD ON REGULAR DIET W/ ENSURE. WILL MONITOR PATIENT
--- NOTE | 2019-09-21 23:26 | NUR ---
INFORMED DR. DEL VALLE ON THE BP READINGS EVERY 15 MINS; HE SAID IF SBP ABOVE 160'S, INFORM HIM IMMEDIATELY.NO NEW ORDER FOR NOW Addendum: 09/21/19 at 2334 by Antoinette Vogt RN EDUARDO NOTE
[2019-09-22] VITALS: BP 112/79
--- NOTE | 2019-09-22 01:12 | NUR ---
PT ABLE TO TURN BY HIMSELF; CHECKED ON PATIENT; OPENED PT'S CURTAINS AND BLINDS TO GET A CLEAR VISUAL ON THE PT. PER MARINE ENGINE MACHINISTBAILEE.
--- NOTE | 2019-09-22 02:13 | NUR ---
PT'S TELEMONITOR BATTERY LOW, WENT INSIDE ROOM AND TOLD PT TO PUT ON HIS MASK. WENT AND REACH THE PT'S CHEST TO RETRIEVE THE EMBRYOLOGY TEACHER, AND CHANGED BATTERIES.
--- NOTE | 2019-09-22 04:20 | NUR ---
PT SLEEPING, NO COMPLAINTS AT THIS TIME. NO SOB, NO RESPIRATORY DSE Addendum: 09/22/19 at 0519 by Antoinette Vogt RN AMEND DSE TO DISTRESS NOTED
[2019-09-22 04:37] VITALS: BP 107/70
--- NOTE | 2019-09-22 06:58 | NUR ---
PT AWAKE, ALERT ORIENTED X 4 , PT NOT IN RESPIRATORY DISTRESS , NO SOB. NO COMPLAINTS. PT IN STABLE CONDITION AT THIS TIME.
--- NOTE | 2019-09-22 07:15 | NUR ---
RECEIVED REPORT FROM NIGHT NURSE, PT IS AWAKE AND ALERT, ON ROOM AIR,NO DISTRESS NOTED AND DENIES PAIN. SAFETY MEASURES IN PLACE AND CALL LIGHT WITH IN REACH. WILL CONTINUE TO MONITOR.
[2019-09-22 07:32] LABS: BASOPHILS # (AUTO) 0.1 K/uL (0.00-0.22); BASOPHILS % (AUTO) 1.9 % (0.0-2.0); EOSINOPHILS # (AUTO) 0.2 K/uL (0-0.4); EOSINOPHILS % (AUTO) 2.2 % (0.0-4.0); HEMATOCRIT 44.5 % (36-52); HEMOGLOBIN 14.9 g/dL (12.0-18.0); LYMPHOCYTES # (AUTO) 1.7 K/uL (2.0-11.5); LYMPHOCYTES % (AUTO) 22.9 % (20.5-51.1); MEAN CORPUSCULAR HEMOGLOBIN 29 pg (27-31); MEAN CORPUSCULAR HGB CONC 34 g/dL (33-37); MEAN CORPUSCULAR VOLUME 85.1 fL (80-94); MONOCYTES # (AUTO) 0.9 K/uL (0.8-1.0); MONOCYTES % (AUTO) 12.3 % (1.7-9.3); NEUTROPHILS # (AUTO) 4.4 K/uL (1.8-7.7); NEUTROPHILS % (AUTO) 60.7 % (42.2-75.2); PLATELET COUNT (AUTO) 463 K/uL (140-450); RED BLOOD CELL COUNT(AUTO) 5.23 MIL/uL (4.20-6.10); RED CELL DISTRIBUTION WIDTH 13.8 % (11.6-13.7); WHITE BLOOD COUNT (AUTO) 7.3 K/uL (4.8-10.8)
[2019-09-22 08:00] VITALS: BP 103/75
[2019-09-22] MEDS: busPIRone 5 MG TAB PO SCH ×2 (08:27→21:35)
[2019-09-22] MEDS: ASCORBIC ACID 500 MG TAB PO SCH (08:28)
[2019-09-22] MEDS: ZINC SULF 220 MG CAP PO SCH (08:28)
[2019-09-22] MEDS: METOPROLOL 25 MG TAB PO SCH ×4 (08:28→21:36)
[2019-09-22] MEDS: ENOXAPARIN 40 MG/0.4 ML SYR SUBQ SCH (08:29)
--- NOTE | 2019-09-22 09:00 | NUR ---
MEDICATIONS DUE GIVEN. CHECK VITAL SIGNS PRIOR TO MEDICATIONS. BP: 103/75, MD 103 BP MEDICATIONS ON HOLD. PT DENIES PAIN.SAFETY MEASURES IN PLACE AND CALL LIGHT WITHIN REACH. WILL CONTINUE TO MONITOR.
[2019-09-22 09:59] LABS: ALBUMIN 2.9 g/dL (3.4-5.0); ANION GAP 14.6 (8-16); CARBON DIOXIDE 24.4 mmol/L (21-32); CREATININE 1.2 mg/dL (0.6-1.3); MAGNESIUM 2.1 mg/dL (1.8-2.4); PHOSPHORUS 4.2 mg/dL (2.5-4.9); TOTAL BILIRUBIN 0.5 mg/dL (0.0-1.0)
[2019-09-22 12:00] VITALS: BP 119/77
--- NOTE | 2019-09-22 12:10 | NUR ---
CHECK VITAL SIGNS PT IS ALERT AND STABLE. WILL CONTINUE TO MONITOR.
--- NOTE | 2019-09-22 14:00 | NUR ---
PT IS STABLE AND AWAKE. NO DISTRESS NOTED. DENIES PAIN. WILL CONTINUE TO MONITOR.
[2019-09-22 16:00] VITALS: BP 116/76
--- NOTE | 2019-09-22 16:30 | NUR ---
MONITORED VITAL SIGNS AND PT IS STABLE. WILL CONTINUE TO MONITOR.
--- NOTE | 2019-09-22 19:05 | NUR ---
ENDORSED TO NIGHT NURSE. PT IS STABLE.
--- NOTE | 2019-09-22 19:10 | NUR ---
RECEIVED BEDSIDE REPORT FROM AM SHIFT RN FOR PT'S CONTINUITY OF CARE. PT IS AAOX4, CITIZEN OF [place] SPEAKING, AMBULATORY, SEEN TALKING ON THE PHONE WITH FAMILY MEMBERS, IS ON SPACE PHYSICIST, ON ROOM AIR, HAS RIGHT HAND 24G SALINE LOCK, DENIES PAIN AT THIS TIME. PT AWARE OF YARN PREPARATION SUPERVISOR ROUTINE, SAFETY MEASURES, ISOLATION PRECAUTION, AND CALL LIGHT WITHIN REACH. WILL MONITOR PT THROUGHOUT SHIFT.
[2019-09-22 20:00] VITALS: BP 116/74
--- NOTE | 2019-09-22 21:36 | NUR ---
ADMINISTERED SCHEDULED MEDICATIONS ORDERED, PT EDUCATION GIVEN, PT VERBALIZED UNDERSTANDING. PT WAS LYING DOWN RESTING, DENIES ANY PAIN, VS CHECKED AND CHARTED. WILL CONTINUE TO MONITOR PT.
--- NOTE | 2019-09-22 23:00 | NUR ---
PT SEEN WALKING AROUND THE ROOM, PT GAVE THUMBS UP THROUGH THE WINDOW WHEN ASKED IF HE WAS OK. NO RESPIRATORY DISTRESS NOTED WHILE WALKING AROUND. WILL CONTINUE TO MONITOR PT.
[2019-09-23] VITALS: BP 114/74
--- NOTE | 2019-09-23 00:40 | NUR ---
VS CHECKED AND CHARTED. PT WAS ASLEEP, WOKE UP FOR VS CHECK, DENIES PAIN OR ANY RESPIRATORY DISTRESS. WILL CONTINUE TO MONITOR PT.
--- NOTE | 2019-09-23 02:15 | NUR ---
PT ASLEEP WITH NO SIGNS OF DISTRESS OR DISCOMFORT. WILL CONTINUE TO MONITOR PT.
[2019-09-23 05:00] VITALS: BP 103/69
--- NOTE | 2019-09-23 05:05 | NUR ---
VS CHECKED AND CHARTED. PT WAS ASLEEP, WOKE UP, DENIES ANY PAIN OR DISTRESS. REMINDED TO USE CALL LIGHT WHEN NEEDED. PT VERBALIZED UNDERSTANDING. WILL CONTINUE TO MONITOR PT.
--- NOTE | 2019-09-23 07:02 | NUR ---
PT ASLEEP WITH NO SIGNS OF DISTRESS. WILL ENDORSE PT TO AM SHIFT RN FOR PT'S CONTINUITY OF CARE.
--- NOTE | 2019-09-23 07:05 | NUR ---
RECEIVED REPORT FROM NIGHT NURSE, PT IS STABLE SLEEPING AND ON ROOM AIR. SAFETY MEASURES IN PLACE AND CALL LIGHT IN PLACE. WILL CONTINUE TO MONITOR.
[2019-09-23 08:00] VITALS: BP 100/68
[2019-09-23 08:05] LABS: BASOPHILS # (AUTO) 0.2 K/uL (0.00-0.22); BASOPHILS % (AUTO) 2.6 % (0.0-2.0); EOSINOPHILS # (AUTO) 0.1 K/uL (0-0.4); EOSINOPHILS % (AUTO) 1.2 % (0.0-4.0); HEMATOCRIT 44.8 % (36-52); HEMOGLOBIN 15.1 g/dL (12.0-18.0); LYMPHOCYTES # (AUTO) 1.3 K/uL (2.0-11.5); LYMPHOCYTES % (AUTO) 18.4 % (20.5-51.1); MEAN CORPUSCULAR HEMOGLOBIN 29 pg (27-31); MEAN CORPUSCULAR HGB CONC 34 g/dL (33-37); MEAN CORPUSCULAR VOLUME 85.5 fL (80-94); MONOCYTES # (AUTO) 0.7 K/uL (0.8-1.0); NEUTROPHILS % (AUTO) 67.8 % (42.2-75.2); PLATELET COUNT (AUTO) 440 K/uL (140-450); RED BLOOD CELL COUNT(AUTO) 5.24 MIL/uL (4.20-6.10); RED CELL DISTRIBUTION WIDTH 13.4 % (11.6-13.7); WHITE BLOOD COUNT (AUTO) 7.3 K/uL (4.8-10.8)
[2019-09-23] MEDS: ZINC SULF 220 MG CAP PO SCH (08:07)
[2019-09-23] MEDS: busPIRone 5 MG TAB PO SCH ×2 (08:07→20:19)
[2019-09-23] MEDS: ASCORBIC ACID 500 MG TAB PO SCH (08:07)
[2019-09-23] MEDS: ENOXAPARIN 40 MG/0.4 ML SYR SUBQ SCH (08:09)
[2019-09-23] MEDS: METOPROLOL 25 MG TAB PO SCH ×2 (08:23→20:21)
[2019-09-23 08:45] LABS: ANION GAP 13.6 (8-16); CARBON DIOXIDE 28.4 mmol/L (21-32); CREATININE 1.2 mg/dL (0.6-1.3)
[2019-09-23 08:53] LABS: PHOSPHORUS 3.9 mg/dL (2.5-4.9)
--- NOTE | 2019-09-23 09:00 | NUR ---
MEDICATIONS DUE GIVEN , CHECK VITAL SIGNS PTIOR TO MEDICATIONS. BP: 100/68, FL 80. PT IS STABLE SAFETY MEASURES IN PLACE AND CALL LIGHT WITH IN REACH.WILL CONTINUE TO MONITOR.
[2019-09-23 12:00] VITALS: BP 112/75
--- NOTE | 2019-09-23 12:00 | NUR ---
CHECK VITAL SIGNS OF PATIENT AND ENCOURAGE TO AMBULATE INSIDE THE ROOM. PT IS STABLE.
--- NOTE | 2019-09-23 14:00 | NUR ---
PT IS SLEEPING AT THIS TIME AND NO DISTRESS NOTED.
[2019-09-23 16:00] VITALS: BP 112/69
--- NOTE | 2019-09-23 16:00 | NUR ---
CHECK VITAL SIGNS BP; 112/69. CONTINUE TO MONITOR PT.
--- NOTE | 2019-09-23 19:10 | NUR ---
ENDORSED PT TO NIGHT NURSE.PT IS SITTING AND IN STABLE CONDITION.
--- NOTE | 2019-09-23 19:23 | NUR ---
RECEIVED REPORT FORM JOSE GAGNON DAYSHIFT NURSE AT BEDSIDE FOR CONTINUITY OF CARE, PT IN STABLE CONDITION.
[2019-09-23 20:00] VITALS: BP 114/84
[2019-09-23] MEDS: ACETAMINOPHEN 325 MG TAB PO PRN (20:36)
--- NOTE | 2019-09-23 20:40 | NUR ---
PT LYING IN BED AOX4 IV SITE ON R HAND IS SALINE LOCKED AND ASYMPTOMATIC. PT V/S FOLLOWS: T 99.1 P 96 R 20 B/P 114/84 02 94% ON ROOM AIR. LUNG SOUNDS CLEAR BUT DIMINISHED. PT C/O MILD BODY ACHES AND WAS GIVEN TYLENOL PO/PRN FOR MILD PAIN 08/13. PT ALSO GIVEN ICE PACKS FOR COOLING MEASURES DUE TO INCREASED TEMPERATURE. PT DECLINED THE ORDERED BUSPAR MILD ANTIDEPRESSANT. BENEFITS AND RISKS EXPLAINED, PT ACKNOWLEDGED UNDERSTANDING BUT CONTINUED TO DECLINE THE MEDICATION. PT DID RECEIVE THE ORDERED HTN MEDICATION LOPRESSOR; RISKS AND BENEFITS EXPLAINED TO PT WHO ACKNOWLEDGED UNDERSTANDING. WILL CONTINUE TO MONITOR PT FOR TEMP AND PAIN. ALL UNIVERSAL AND DROPLET PRECAUTIONS IN PLACE.
[2019-09-23] MEDS ORDERED: LORazepam 2 MG/ML VIAL IM/IVP PRN (23:55)
[2019-09-24] VITALS: BP 117/79
--- NOTE | 2019-09-24 00:45 | NUR ---
PT C/O OF FEELING ANXIOUS. EXPLAINED TO PT VIA DOCUMENT SCANNER THAT HE HAS NO NEEDED PRN FOR ANXIETY AND THAT IS WHY THE BUSPAR WAS ORDERED BID. PT EXPLAINED VIA DOCUMENT SCANNER THAT THE BUSPAR WAS NOT HELPING HIM BUT MAKING HIM MORE ANXIOUS. SPOKE WITH MD REGARDING PT REACTION TO BUSPAR AND HIS NEED TO SLEEP AND NOT FEEL ANXIOUS. MD ORDERED 1MG IVP ATIVAN WHICH WAS GIVEN VIA 24 G ON R HAND AND FLUSHED PATENT. V/S FOLLOWS: T 98.8 P 86 R 20 B/P 117/79 02 94% ON ROOM AIR. ALL DROPLET PRECAUTIONS IN PLACE.
--- NOTE | 2019-09-24 02:15 | NUR ---
PT IN, BED SLEEPING SOUNDLY NO S/S OF PAIN OR DISTRESS NOTED; ALL UNIVERSAL AND DROPLET PRECAUTIONS IN PLACE.
[2019-09-24 04:00] VITALS: BP 103/65
--- NOTE | 2019-09-24 04:30 | NUR ---
PT IN BED SLEEPING BUT AROUSABLE TO LIGHT TOUCH. PT HAS NO C/O VOICED V/S FOLLOWS: T 97.2 P 80 R 20 B/P 103/65 02 95% ON ROOM AIR. ALL UNIVERSAL AND DROPLET PRECAUTIONS IN PLACE.
[2019-09-24 06:47] LABS: BASOPHILS # (AUTO) 0.2 K/uL (0.00-0.22); BASOPHILS % (AUTO) 2.3 % (0.0-2.0); EOSINOPHILS # (AUTO) 0.1 K/uL (0-0.4); EOSINOPHILS % (AUTO) 1.8 % (0.0-4.0); HEMATOCRIT 43.3 % (36-52); HEMOGLOBIN 14.8 g/dL (12.0-18.0); LYMPHOCYTES # (AUTO) 2.1 K/uL (2.0-11.5); LYMPHOCYTES % (AUTO) 30.2 % (20.5-51.1); MEAN CORPUSCULAR HEMOGLOBIN 29 pg (27-31); MEAN CORPUSCULAR HGB CONC 34 g/dL (33-37); MEAN CORPUSCULAR VOLUME 85.4 fL (80-94); MONOCYTES # (AUTO) 0.9 K/uL (0.8-1.0); MONOCYTES % (AUTO) 12.9 % (1.7-9.3); NEUTROPHILS # (AUTO) 3.6 K/uL (1.8-7.7); NEUTROPHILS % (AUTO) 52.8 % (42.2-75.2); PLATELET COUNT (AUTO) 482 K/uL (140-450); RED BLOOD CELL COUNT(AUTO) 5.08 MIL/uL (4.20-6.10); RED CELL DISTRIBUTION WIDTH 13.6 % (11.6-13.7); WHITE BLOOD COUNT (AUTO) 6.9 K/uL (4.8-10.8)
[2019-09-24 07:13] LABS: ANION GAP 14.1 (8-16); CREATININE 1.2 mg/dL (0.6-1.3); POTASSIUM 4.1 mmol/L (3.5-5.1)
--- NOTE | 2019-09-24 07:25 | NUR ---
RECEIVE REPORT FROM NIGHT NURSE FOR CONTINUITY OF CARE, PT IS ASLEEP IN BED, RESPIRATIONS ARE EVEN AND UNLABORED ON ROOM AIR, PT HAS RIGHT HAND 24G SALINE LOCK, PT IS STABLE, BED IN LOW POSITION, CALL LIGHT WITHIN REACH, SAFETY MEASURES IN PLACE, WILL CONTINUE TO MONITOR.
[2019-09-24 08:00] VITALS: BP 107/75
[2019-09-24 08:52] LABS: MAGNESIUM 2.2 mg/dL (1.8-2.4); PHOSPHORUS 4.4 mg/dL (2.5-4.9)
[2019-09-24] MEDS: METOPROLOL 25 MG TAB PO SCH ×2 (09:00→13:07)
[2019-09-24] MEDS: busPIRone 5 MG TAB PO SCH (09:00)
[2019-09-24] MEDS: ENOXAPARIN 40 MG/0.4 ML SYR SUBQ SCH (09:24)
[2019-09-24] MEDS: ZINC SULF 220 MG CAP PO SCH (09:25)
[2019-09-24] MEDS: ASCORBIC ACID 500 MG TAB PO SCH (09:25)
--- NOTE | 2019-09-24 09:33 | NUR ---
ADMINISTERED SCHEDULED MEDICATION, HELD METOPROLOL BP IS 106/74 [address] HR [address] NICHOLAS ORDER OF HOLDING MEDICATION IF BLOOD PRESSURE IS BELOW 110, PT EDUCATION GIVEN, PT VERBALIZED UNDERSTANDING, PT STABLE, PT TOLERATED MEDICATION WELL, CALL LIGHT WITHIN REACH.
--- NOTE | 2019-09-24 11:00 | NUR ---
PT IS RESTING IN BED, PT IS STABLE, RESPIRATIONS ARE EVEN AND UNLABORED ON ROOM AIR. CALL LIGHT WITHIN REACH.
[2019-09-24] MEDS ORDERED: BUS5 PO (11:25)
[2019-09-24] MEDS ORDERED: METO25TA PO (11:25)
[2019-09-24 12:00] VITALS: BP 115/83
--- NOTE | 2019-09-24 13:08 | NUR ---
ADMINISTERED METOPROLOL DR NICHOLAS SAID TO GIVE PT BP 115/83, HR 117, AND HR 145 STANDING UP. PT EDUCATION GIVEN, PT VERBALIZED UNDERSTANDING, PT STABLE, CALL LIGHT WITHIN REACH.
--- NOTE | 2019-09-24 14:22 | NUR ---
09/24/19 RD FOLLOW UP COMPLETED PLEASE REFER TO NUTRITION ASSESSMENT UNDER CARE ACTIVITY FOR ESTIMATED NUTRITIONAL NEEDS. 1. CONTINUE REGULAR DIET WITH ENSURE BID TOLERATED 2. RD PROVIDED NUTRITION EDUCATION ON ADEQUATE HYDRATION AND A HIGH CALORIE, HIGH PROTEIN DIET. PT ACCEPTED 3. RD TO FOLLOW-UP 3-5 DAYS, MODERATE RISK BALDEV G[address]ME[address] RD
--- NOTE | 2019-09-24 14:40 | NUR ---
RE-ASSESS PT BLOOD PRESSURE. PT BLOOD PRESSURE SUPINE 106/74, HR 102, 02 96%. PT BLOOD PRESSURE STANDING 108/78, HR 133, O2: 92%. INFORMED DR ARCOS TO NOTIFIED DR NICHOLAS.
--- NOTE | 2019-09-24 15:05 | NUR ---
ASSESSED PT BLOOD PRESSURE AFTER AMBULATING FOR 5 MINUTES, PT BLOOD PRESSURE 121/89, HR 122, 02 92%, PT STABLE, CALL LIGHT WITHIN REACH.
--- NOTE | 2019-09-24 16:20 | NUR ---
PT DISCHARGED HOME, IV TAKEN OUT, DISCHARGE INSTRUCTIONS GIVEN, PT EDUCATED ON HOW TO SELF-ISOLATE WITH HIS FAMILY TO PREVENT SPREAD OF INFECTION, PT VERBALIZED UNDERSTANDING AND STATED HE HAD HIS OWN ROOM AND BATHROOM TO USE, PT AMBULATED TO LOBBY WITH STEADY GAIT. PT STABLE.
== END 2019-09-24 16:20 | disposition home or self-care (01) | DRG 720 ==
LOC: MED 18:34 → MIC 20:14 → EEVIPCON 20:14 → MIC 21:07 → MMU 09-21 03:00
PROVIDERS: ADMIT General Practice; ATTEND General Practice
DX: A41.9 Sepsis, unspecified organism (principal); U07.1 COVID-19; E43 Unspecified severe protein-calorie malnutrition; J96.01 Acute respiratory failure with hypoxia; N17.0 Acute kidney failure with tubular necrosis; E86.0 Dehydration; R65.20 Severe sepsis without septic shock; J12.89 Other viral pneumonia; Z68.33 Body mass index [BMI] 33.0-33.9, adult; E66.9 Obesity, unspecified; Z71.3 Dietary counseling and surveillance; E83.39 Other disorders of phosphorus metabolism; E83.42 Hypomagnesemia; R74.0 Nonspecific elevation of levels of transaminase and lactic acid dehydrogenase [LDH]; I10 Essential (primary) hypertension; D47.3 Essential (hemorrhagic) thrombocythemia; R73.9 Hyperglycemia, unspecified; E87.6 Hypokalemia; F43.9 Reaction to severe stress, unspecified; F41.9 Anxiety disorder, unspecified; F32.9 Major depressive disorder, single episode, unspecified; Z79.899 Other long term (current) drug therapy
CPT/HCPCS: 36415; 36600; 71045; 80048; 80053; 80305; 81001; 82550; 82728; 82803; 83036; 83605; 83615; 83690; 83735; 83880; 84100; 84443; 84484; 85025; 85379; 85610; 85651; 85730; 86140; 87040; 87081; 87086; 87804; 93005; 96365; 96366; 97116; 97161-GP; 99291; J0456; J0696; J1650; J2060; J3475; J7030; J7042; J7060; Q0092